=== PATIENT | female | born 1970 | race Caucasian/White ===

== ENCOUNTER 2016-11-26 12:27 | Emergency (ER) | payer OTHER ==
[~2016-11-26] VITALS: Ht 165.1 cm; Wt 57.4 kg
[~2016-11-26 12:27] MED LIST: CLON0.5T3 PO; CLR10 PO; LXP10 PO; OMEP40CA PO; ONDA8TAB7 PO; RIZA10TA18 PO
[2016-11-26 12:39] VITALS: TEMP 37.1; Ht 165.1 cm; Wt 57.4 kg
[2016-11-26] MEDS ORDERED: KETOROLAC TROMETHAMINE 60 MG/2 ML VIAL IM STA (13:46)
[2016-11-26] MEDS ORDERED: PROMETHAZINE HCL INJ 25 MG/ML 1 ML VIAL IM STA (13:46)
[2016-11-26] MEDS ORDERED: HYDROmorphone INJ 2 MG/ML SYR/VIAL IM STA (13:46)
[2016-11-26 14:14] VITALS: BP 100/58; PULSE 96; O2SAT 98
--- NOTE | 2016-11-26 14:28 | EMERGENCY ROOM VISIT NOTE ---
History Report prepared by Meng: Nia Owusu Under the Supervision of: Dr. Shahram Walsh D.O. First contact with patient: 13:39 Chief Complaint: HEADACHE Stated Complaint: MIGRAINE X 3 DAYS History of Present Illness The patient is a 45 year old female who presents to the Emergency Room with complaints of persistent headache that started 3 days ago. This headache feels like her typical headaches. The patient states that she was able to relieve the headache with her at-home medications but she did not specify what exactly she took. Today, she did not have any medications to take so she came into the ED. She is also experiencing photophobia, cough, sinus congestion, chest congestion , sore throat, and nausea. The patient adds that she is following with her PCP for recent neurological problems as a result of pinched nerves in her neck. Source of History: patient Onset: 3 days ago Position: head Quality: other (headache) Timing: other (persistent) Associated Symptoms: + cough, + nausea, + sorethroat Note: photophobia, sinus congestion, chest congestion Review of Systems See HPI for pertinent positives & negatives. A total of 10 systems reviewed and were otherwise negative. Past Medical & Surgical Medical Problems: (1) Bipolar II disorder (2) Gastric ulcer (3) History of - tubal ligation (4) Irritable Bowel Syndrome (5) Migraine (6) Unspecified cervix surgery Family History Cancer Diabetes mellitus Heart disease Hypertension Social History Smoking Status: Current Every Day Smoker Alcohol Use: occasionally Drug Use: none Marital Status: Housing Status: lives alone Occupation Status: employed Current/Historical Medications Scheduled Escitalopram Oxalate (Escitalopram Oxalate), 10 MG PO HS Loratadine (Claritin), 10 MG PO DAILY Scheduled PRN Clonazepam (Klonopin), 0.5 MG PO TID PRN for Anxiety Omeprazole (Prilosec), 40 MG PO DAILY PRN for PRN Ondansetron Tab (Zofran), 8 MG PO UD PRN for Nausea Rizatriptan Benzoate (Maxalt), 10 MG PO UD PRN for Migraine Allergies Coded Allergies: Lamotrigine (Verified Allergy, Mild, RASH, 11/26/16) Erythromycin (Verified Allergy, Unknown, ., 11/26/16) Macrolides (Verified Allergy, Unknown, ALLERGY TO ERYTHROMYCIN, 11/26/16) Diphenhydramine (Unverified Adverse Reaction, Intermediate, restless legs , 11/26/16) Hydroxyzine (Unverified Adverse Reaction, Unknown, RESTLESS LEGS, 11/26/16) Physical Exam Vital Signs Date Time Temp Pulse Resp B/P Pulse Ox O2 Delivery O2 Flow Rate FiO2 11/26/16 14:14 96 18 100/58 98 11/26/16 12:39 37.1 99 18 93/54 99 Room Air Physical Exam CONSTITUTIONAL/VITAL SIGNS: Reviewed / noted above. GENERAL: Non-toxic in appearance. INTEGUMENTARY: Warm, dry, and [place]. HEAD: Normocephalic. EYES: without scleral icterus or trauma. ENT/OROPHARYNX: clear and moist. LYMPHADENOPATHY/NECK: Is supple without lymphadenopathy or meningismus. RESPIRATORY: Lungs clear and equal. CARDIOVASCULAR: Regular rate and rhythm. GI/ABDOMEN: Soft and nontender. No organomegaly or pulsatile mass. No rebound or guarding. Normal bowel sounds. EXTREMITIES: Warm and well perfused. BACK: No CVA tenderness. NEUROLOGICAL: Intact without focal deficits. PSYCHIATRIC: normal affect. MUSCULOSKELETAL: Normally developed with good muscle tone. Medical Decision & Procedures Medications Administered Medications (Trade) Dose Ordered Sig/Cesar Route Start Time Stop Time Status Last Admin Dose Admin Ketorolac Tromethamine (Toradol Inj) 60 mg NOW STAT IM 11/26/16 13:46 11/26/16 13:48 DC 11/26/16 14:07 60 MG Hydromorphone HCl (Dilaudid Inj) 2 mg NOW STAT IM 11/26/16 13:46 11/26/16 13:48 DC 11/26/16 14:08 2 MG Promethazine HCl (Phenergan Inj) 25 mg NOW STAT IM 11/26/16 13:46 11/26/16 13:48 DC 11/26/16 14:07 25 MG ED Course 1339: Previous medical records were reviewed. The patient was evaluated in room D1. A complete history and physical examination was performed. 1346: Ordered Phenergan 25 mg IM, Dilaudid 2 mg IM, Toradol 60 mg IM 1351: On reevaluation, the patient is doing well. I discussed the results and findings with the patient. She verbalized agreement of the treatment plan. She was discharged home. Medical Decision Differential includes migraine headache, meningitis, sinusitis, CO exposure, ICH , SAH, infection, tumor, headache, sinus thrombosis, arterial dissection, as well as others were entertained. This is a 45-year-old female who presents to the ED with a chief complaint of a headache. She reports a history of migraines. The patient also states that she has had some flulike illnesses recently. She states this is similar to previous headaches. She denies any neck stiffness. She denies any other symptoms. Her vital signs are normal. She is afebrile. Her exam was unremarkable. Patient was treated with Dilaudid 2 mg IM, Toradol 60 mg IM and Phenergan 25 mg IM. She was felt to be stable for discharge and outpatient follow-up. She requested a prescription for Klonopin but this was declined to the PCP or her chronic provider. Impression Primary Impression: Headache Scribe Attestation The scribe's documentation has been prepared under my direction and personally reviewed by me in its entirety. I confirm that the note above accurately reflects all work, treatment, procedures, and medical decision making performed by me. Departure Information Dispostion Home / Self-Care Referrals Natalia Pantoja D.O. (PCP) Forms HOME CARE DOCUMENTATION FORM, IMPORTANT VISIT INFORMATION Patient Instructions A Signature Page, My [facility] Additional Instructions Follow-up with your doctor for further care and evaluation in 1-2 days. Return to the emergency department for worsening or new symptoms or any concerns. You have been examined and treated today on an emergency basis only. This is not a substitute for, or an effort to provide, complete comprehensive medical care. It is impossible to recognize and treat all injuries or illnesses in a single emergency department visit. It is therefore important that you follow up closely with your doctor. Call as soon as possible for an appointment.
== END 2016-11-26 14:32 | disposition home or self-care (01) ==
LOC: C.EDB 12:28 → C.EDD 14:32
DX: R51 Headache (principal); R11.0 Nausea; J02.9 Acute pharyngitis, unspecified; F17.210 Nicotine dependence, cigarettes, uncomplicated; F31.81 Bipolar II disorder; Z79.899 Other long term (current) drug therapy

== ENCOUNTER 2017-06-25 10:14 | Emergency (ER) | payer OTHER ==
[~2017-06-25] VITALS: Ht 165.1 cm; Wt 53.0 kg
[2017-06-25 10:20] VITALS: TEMP 36.7; Ht 165.1 cm; Wt 53.0 kg
[2017-06-25] MEDS ORDERED: SODIUM CHLORIDE 0.9% 1000ML 1,000 ML IV ONE (10:30)
[2017-06-25] MEDS ORDERED: KETOROLAC TROMETHAMINE 30 MG/ML VIAL IV STA (10:30)
[2017-06-25] MEDS ORDERED: PROCHLORPERAZINE 5 MG/ML 2 ML VIAL IV STA (10:30)
--- NOTE | 2017-06-25 10:39 | EMERGENCY ROOM VISIT NOTE ---
History Report prepared by Meng: Elva Max Under the Supervision of: Dr. Butch Johnston M.D. First contact with patient: 10:24 Chief Complaint: HEADACHE Stated Complaint: HEADACHE X2 DAYS History of Present Illness The patient is a 46 year old female who presents to the Emergency Room with complaints of a constant headache for the past two days. Her headache is located more on the right side of her head. She states that it is affecting the vision in her right eye. Light exacerbates her pain. She also reports nausea and one episode of vomiting this morning. The patient has a history of migraine headaches and states that this feels like her typical migraine. She has tried her usual medications without any relief of her symptoms. The patient rates her pain as a 10/10 in severity. Source of History: patient Onset: 2 days ago Position: head Symptom Intensity: 10/10 Timing: constant Modifying Factors (Worsening): other (light) Associated Symptoms: + nausea, + vomiting Review of Systems All systems have been listed, reviewed, and are negative other than those previously mentioned. Please see Additional Medical History Sheet. Past Medical & Surgical Medical Problems: (1) Bipolar II disorder (2) Gastric ulcer (3) History of - tubal ligation (4) Irritable Bowel Syndrome (5) Lactose intolerance (6) Migraine (7) Periorbital cellulitis of right eye (8) Radiculopathy affecting upper extremity (9) Unspecified cervix surgery Family History Cancer Diabetes mellitus Heart disease Hypertension Social History Smoking Status: Current Every Day Smoker Smokeless Tobacco Use: No Alcohol Use: occasionally Drug Use: none Marital Status: Housing Status: lives with family Occupation Status: employed Current/Historical Medications Scheduled Escitalopram (Lexapro), 10 MG PO DAILY Scheduled PRN Clonazepam (Klonopin), 0.5 MG PO TID PRN for Anxiety Promethazine Hcl (Phenergan), 25 MG PO Q4H PRN for Nausea Rizatriptan Benzoate (Maxalt), 10 MG PO UD PRN for Migraine Miscellaneous Medications Lactase (Lactaid) Allergies Coded Allergies: Lamotrigine (Verified Allergy, Mild, RASH, 06/25/17) Erythromycin (Verified Allergy, Unknown, ., 06/25/17) Macrolides (Verified Allergy, Unknown, ALLERGY TO ERYTHROMYCIN, 06/25/17) Diphenhydramine (Unverified Adverse Reaction, Intermediate, restless legs , 06/25/17) Hydroxyzine (Unverified Adverse Reaction, Unknown, RESTLESS LEGS, 06/25/17) Physical Exam Vital Signs Date Time Temp Pulse Resp B/P (MAP) Pulse Ox O2 Delivery O2 Flow Rate FiO2 06/25/17 11:31 56 20 102/57 100 Room Air 06/25/17 10:52 63 06/25/17 10:49 100 Room Air 06/25/17 10:20 36.7 66 18 118/60 99 Room Air Physical Exam GENERAL: Patient awake, alert, oriented x 3. Patient appears to be in moderate distress. Patient follows commands. Patient does not appear toxic. Patient is adequately hydrated and well-nourished. SKIN: No erythema, pallor, cyanosis or rash HEENT: Normal head, pupils equal, reactive to light and accommodation. Positive photophobia. Ears normal. Oral cavity and posterior pharynx appear normal. Neck: Without adenopathy, no neck vein distention. LUNGS: Clear to auscultation. No wheezes, no rales, no rhonchi. HEART: No murmurs. No gallops. No rubs ABDOMEN: Soft, nontender. EXTREMITIES: No signs of trauma. No pedal or pretibial edema. No calf or thigh tenderness. NEUROLOGIC: Cranial nerves II-XII within normal limits. No gross motor sensory function deficits. Medical Decision & Procedures Medications Administered Medications (Trade) Dose Ordered Sig/Cesar Route Start Time Stop Time Status Last Admin Dose Admin Ketorolac Tromethamine (Toradol Inj) 30 mg NOW STAT IV 06/25/17 10:30 06/25/17 10:34 DC 06/25/17 10:42 30 MG Prochlorperazine Edisylate (Compazine Inj) 10 mg NOW STAT IV 06/25/17 10:30 06/25/17 10:34 DC 06/25/17 10:42 10 MG Sodium Chloride 1,000 ml @ 999 mls/hr Q1H1M ONCE IV 06/25/17 10:30 06/25/17 11:30 DC 06/25/17 10:42 999 MLS/HR ED Course 1024: Past medical records reviewed. The patient was evaluated in room B12B. A complete history and physical examination was performed. 1030: NSS 1000 ml @ 999 mls/hr IV, Compazine 10 mg IV, Toradol 30 mg IV 1125: I reassessed the patient at this time. She is feeling better and resting comfortably. I discussed the results and treatment plan with the patient. I answered all pertaining questions that she had. She expressed understanding and verbalized agreement. The patient will be discharged home. Medical Decision Differential diagnoses includes migraine headache, tension headache, cluster headache, meningitis, encephalitis. The patient received the above medications with good relief. The patient would like to go home. The patient has no evidence of meningitis encephalitis or other infectious processes. The patient's findings are most consistent with a migraine headache. Medication Reconcilliation Current Medication List: was personally reviewed by me Blood Pressure Screening Patient's blood pressure: Normal blood pressure Impression Primary Impression: Migraine headache Scribe Attestation The scribe's documentation has been prepared under my direction and personally reviewed by me in its entirety. I confirm that the note above accurately reflects all work, treatment, procedures, and medical decision making performed by me. Departure Information Dispostion Home / Self-Care Referrals Ej Chong III, M.D. (PCP) Forms HOME CARE DOCUMENTATION FORM, IMPORTANT VISIT INFORMATION Patient Instructions My [facility] Additional Instructions REST Drink extra fluids. Follow-up with your family physician. Problem Qualifiers Primary Impression: Migraine headache Migraine type: unspecified Status migrainosus presence: without status migrainosus Intractability: not intractable Qualified Codes: G43.909 - Migraine, unspecified, not intractable, without status migrainosus
[2017-06-25 10:49] VITALS: O2SAT 100
[2017-06-25] MEDS ORDERED: LACT3000 (10:59)
[2017-06-25] MEDS ORDERED: ESCI10TA17 PO (10:59)
[2017-06-25] MEDS ORDERED: PROM25TA9 PO (10:59)
[2017-06-25 11:31] VITALS: BP 102/57; PULSE 56; O2SAT 100
== END 2017-06-25 11:59 | disposition home or self-care (01) ==
LOC: C.EDB 10:18
DX: G43.909 Migraine, unspecified, not intractable, without status migrainosus (principal); F31.81 Bipolar II disorder; F17.210 Nicotine dependence, cigarettes, uncomplicated; Z79.899 Other long term (current) drug therapy; Z83.3 Family history of diabetes mellitus; Z82.49 Family history of ischemic heart disease and other diseases of the circulatory system; Z88.1 Allergy status to other antibiotic agents

== ENCOUNTER 2017-12-31 14:44 | Emergency (ER) | payer OTHER ==
[~2017-12-31] VITALS: Ht 165.1 cm; Wt 51.3 kg
[~2017-12-31 14:44] MED LIST changes: -CLR10 PO; +ESCI10TA17 PO; +LACT3000 PO; -LXP10 PO; -OMEP40CA PO; -ONDA8TAB7 PO; +PROM25TA9 PO
[2017-12-31 14:46] VITALS: TEMP 36.8; Ht 165.1 cm; Wt 51.3 kg
--- NOTE | 2017-12-31 15:32 | DIAGNOSTIC IMAGING REPORT ---
CHEST ONE VIEW PORTABLE CLINICAL HISTORY: 47 years-old Female presenting with L sided chest pain. TECHNIQUE: Portable upright AP view of the chest was obtained. COMPARISON: 10/20/2011. FINDINGS: Cardiomediastinal silhouette normal. Lungs and pleural spaces clear. Osseous structures normal. Upper abdomen normal. IMPRESSION: 1. No acute cardiopulmonary disease. Electronically signed by: Santos Reyes M.D. 12/31/2017 3:31 PM Dictated Date/Time: 12/31/2017 3:30 PM
[2017-12-31 15:37] LABS: BASO % 0.2 %; BASO ABS # 0.01 K/uL (0-0.2); EOS % 1.1 %; EOS ABS # 0.05 K/uL (0-0.5); HEMATOCRIT 36.2 % (37-47); HEMOGLOBIN 12.6 g/dL (12.0-16.0); IG# 0.01 K/uL (0.00-0.02); LYMPH % 35.5 %; LYMPH ABS # 1.66 K/uL (1.2-3.4); MEAN CELL VOLUME 92.1 fL (80-100); MEAN CORPUSCULAR HEMOGLOBIN 32.1 pg (25-34); MEAN CORPUSCULAR HGB CONC 34.8 g/dl (32-36); MEAN PLATELET VOLUME 9.7 fL (7.4-10.4); MONO % 8.8 %; MONO ABS # 0.41 K/uL (0.11-0.59); NEUT % 54.2 %; NEUT ABS # 2.53 K/uL (1.4-6.5); PLATELET COUNT 211 K/uL (130-400); RED CELL DISTRIBUTION WIDTH CV 13.3 % (11.5-14.5); WHITE BLOOD COUNT 4.67 K/uL (4.8-10.8)
[2017-12-31] MEDS ORDERED: VENL150C56 PO (15:42)
[2017-12-31 15:47] LABS: PTT PATIENT 25.5 SECONDS (21.0-31.0)
--- NOTE | 2017-12-31 15:50 | EMERGENCY ROOM VISIT NOTE ---
History First contact with patient: 15:16 Chief Complaint: CHEST PAIN Stated Complaint: CHEST PAIN GOING TO BACK UPPER LEFT Nursing Triage Summary: Pt presents with left sided chest pain through to back, intermittent since Sun. Denies sob. +Lightheaded. Denies cardiac hx. Denies anything that makes pain better/worse. History of Present Illness The patient is a 47 year old female who presents to the Emergency Room via private vehicle with complaints of "chest pain going to back upper left". The patient states that this past Saturday while sitting on the couch she developed left-sided chest pain anteriorly that radiates just medial to her scapula. She states that when she moves her arm the pain is worse in the back. She is not able to reproduce the chest pain by pressing in the front but notes that when she does press the pain is slightly alleviated. She rates the current pain as minimal, but notes it has been constant since Saturday. She has a strong family history of heart ailments, but has not personally. She denies any history of clots. She denies any hormone use, leg swelling, recent long bone fracture, or alleviating or aggravating factors. She does smoke. She notes that when she exerts herself she does feel short of breath. Review of Systems A complete 10-point Review of Systems was discussed with the patient, with pertinent positives and negatives listed in the History of Present Illness. All remaining Review of Systems questions can be considered negative unless otherwise specified. Past Medical/Surgical History Medical Problems: (1) Bipolar II disorder (2) Gastric ulcer (3) History of - tubal ligation (4) Irritable Bowel Syndrome (5) Lactose intolerance (6) Migraine (7) Periorbital cellulitis of right eye (8) Radiculopathy affecting upper extremity (9) Unspecified cervix surgery Family History Cancer Diabetes mellitus Heart disease Hypertension Social History Smoking Status: Current Every Day Smoker Alcohol Use: occasionally Drug Use: none Marital Status: Housing Status: lives with family Occupation Status: employed Current/Historical Medications Scheduled Lactase (Lactaid), 1 TAB PO prn Loratadine (Claritin), 10 MG PO DAILY Omeprazole (Prilosec), 40 MG PO DAILY Ondansetron Hcl (Zofran), 8 MG PO Q8 Venlafaxine Hcl (Venlafaxine Extended Rel), 37.5 MG PO DAILY Scheduled PRN Clonazepam (Klonopin), 0.5 MG PO TID PRN for Anxiety Meloxicam (Mobic), 7.5 MG PO BID PRN for Pain Promethazine Hcl (Phenergan), 25 MG PO Q4H PRN for Nausea Rizatriptan Benzoate (Maxalt), 10 MG PO UD PRN for Migraine Physical Exam Vital Signs Date Time Temp Pulse Resp B/P (MAP) Pulse Ox O2 Delivery O2 Flow Rate FiO2 12/31/17 16:45 57 16 110/61 95 Room Air 12/31/17 16:17 100 Room Air 12/31/17 14:46 36.8 77 18 120/66 100 Room Air Physical Exam VITAL SIGNS - Vital signs and nursing notes were reviewed. Stable. GENERAL - 47-year-old female appearing her stated age who is in no acute distress. Communicates well with provider and answers questions appropriately. SKIN - Without rashes. HEAD - NC/AT. EYES -Sclera anicteric. EARS - No deformities of external structures noted on gross examination bilaterally. NOSE - Midline and without cyanosis. No epistaxis or purulent drainage noted. MOUTH/OROPHARYNX - Without perioral cyanosis. NECK - Neck with FROM. LUNGS - Chest wall symmetric without accessory muscle use, intercostals retractions, or central cyanosis. Normal vesicular breath sounds CTA B/L. No wheezes, rales, or rhonchi appreciated. CARDIAC - RRR with S1/S2. No murmur, rubs, or gallops appreciated. ABDOMEN - Abdominal contour normal without pulsations or visible masses. BS normoactive all four quadrants. No tenderness, palpable masses, hepatosplenomegaly, or ascites noted. EXTREMITIES - No clubbing or peripheral cyanosis. No pretibial edema present. NEUROLOGIC - Cranial nerves II through XII grossly intact. Sensory intact to light touch throughout. PSYCH - A&O, and cooperates fully with examiner. Pt is very pleasant and interacts well with examiner. Medical Decision & Procedures ER Provider Diagnostic Interpretation: CHEST ONE VIEW PORTABLE CLINICAL HISTORY: 47 years-old Female presenting with L sided chest pain. TECHNIQUE: Portable upright AP view of the chest was obtained. COMPARISON: 10/20/2011. FINDINGS: Cardiomediastinal silhouette normal. Lungs and pleural spaces clear. Osseous structures normal. Upper abdomen normal. IMPRESSION: 1. No acute cardiopulmonary disease. Electronically signed by: Santos Reyes M.D. 12/31/2017 3:31 PM Dictated Date/Time: 12/31/2017 3:30 PM Laboratory Results 12/31/17 15:25 Red Blood Count 3.93, Mean Corpuscular Volume 92.1, Mean Corpuscular Hemoglobin 32.1, Mean Corpuscular Hemoglobin Concent 34.8, Mean Platelet Volume 9.7, Neutrophils (%) (Auto) 54.2, Lymphocytes (%) (Auto) 35.5, Monocytes (%) (Auto) 8.8, Eosinophils (%) (Auto) 1.1, Basophils (%) (Auto) 0.2, Neutrophils # (Auto) 2.53, Lymphocytes # (Auto) 1.66, Monocytes # (Auto) 0.41, Eosinophils # (Auto) 0.05, Basophils # (Auto) 0.01 12/31/17 15:25 Test 12/31/17 15:25 12/31/17 16:00 White Blood Count 4.67 K/uL (4.8-10.8) Red Blood Count 3.93 M/uL (4.2-5.4) Hemoglobin 12.6 g/dL (12.0-16.0) Hematocrit 36.2 % (37-47) Mean Corpuscular Volume 92.1 fL (80-100) Mean Corpuscular Hemoglobin 32.1 pg (25-34) Mean Corpuscular Hemoglobin Concent 34.8 g/dl (32-36) Platelet Count 211 K/uL (130-400) Mean Platelet Volume 9.7 fL (7.4-10.4) Neutrophils (%) (Auto) 54.2 % Lymphocytes (%) (Auto) 35.5 % Monocytes (%) (Auto) 8.8 % Eosinophils (%) (Auto) 1.1 % Basophils (%) (Auto) 0.2 % Neutrophils # (Auto) 2.53 K/uL (1.4-6.5) Lymphocytes # (Auto) 1.66 K/uL (1.2-3.4) Monocytes # (Auto) 0.41 K/uL (0.11-0.59) Eosinophils # (Auto) 0.05 K/uL (0-0.5) Basophils # (Auto) 0.01 K/uL (0-0.2) RDW Standard Deviation 45.0 fL (36.4-46.3) RDW Coefficient of Variation 13.3 % (11.5-14.5) Immature Granulocyte % (Auto) 0.2 % Immature Granulocyte # (Auto) 0.01 K/uL (0.00-0.02) Prothrombin Time 10.7 SECONDS (9.0-12.0) Prothromb Time International Ratio 1.0 (0.9-1.1) Activated Partial Thromboplast Time 25.5 SECONDS (21.0-31.0) Partial Thromboplastin Ratio 1.0 D-Dimer < 190 ug/L FEU (0-500) Anion Gap 4.0 mmol/L (3-11) Est Creatinine Clear Calc Drug Dose 59.3 ml/min Estimated GFR () 82.2 Estimated GFR (Non- 70.9 BUN/Creatinine Ratio 12.3 (10-20) Calcium Level 8.3 mg/dl (8.5-10.1) Total Bilirubin 0.4 mg/dl (0.2-1) Aspartate Amino Transf (AST/SGOT) 20 U/L (15-37) Alanine Aminotransferase (ALT/SGPT) 25 U/L (12-78) Alkaline Phosphatase 41 U/L (45-117) Total Creatine Kinase 108 U/L (26-192) Creatine Kinase MB 1.2 ng/ml (0.5-3.6) Creatine Kinase MB Ratio 1.1 (0-3.0) Troponin I < 0.015 ng/ml (0-0.045) Total Protein 8.0 gm/dl (6.4-8.2) Albumin 4.0 gm/dl (3.4-5.0) Globulin 4.0 gm/dl (2.5-4.0) Albumin/Globulin Ratio 1.0 (0.9-2) Lipase 156 U/L (73-393) Thyroid Stimulating Hormone (TSH) 2.400 uIu/ml (0.300-4.500) Lyme Disease IgG Antibody NEG (NEG) Lyme Disease IgM Antibody NEG (NEG) Urine Color YELLOW Urine Appearance CLEAR (CLEAR) Urine pH 5.5 (4.5-7.5) Urine Specific [place] 1.010 (1.000-1.030) Urine Protein NEG (NEG) Urine Glucose (UA) NEG (NEG) Urine Ketones NEG (NEG) Urine Occult Blood NEG (NEG) Urine Nitrite NEG (NEG) Urine Bilirubin NEG (NEG) Urine Urobilinogen NEG (NEG) Urine Leukocyte Esterase NEG (NEG) Urine Test NEG (NEG) Medical Decision Patient was seen and evaluated as above. She presents to us today with chest pain. It has been 3 days constant, and there are no exacerbating or alleviating factors. It is not worse with exertion. She does smoke, but no other personal risk factors identified. IV access was initiated, and the above workup was performed. Bedside EKG reveals normal sinus rhythm per my interpretation, rate of 70 bpm. No evidence of MN or pulmonary embolism upon examination. CBC reveals white blood cell count so low at 4.67, red blood cell count low at 3.93. Coagulation studies normal. D-dimer negative. Chemistry panel reveals no evidence of kidney or liver failure. Calcium low at 8.3. Lipase normal. TSH normal. Troponin negative. Urine negative. Lyme screen negative. Case was discussed with the attending physician. It is reassuring that the patient is able to alleviate her left anterior chest pain with gentle massage. There is no exertional symptoms to her chest pain today. Given the patient's negative troponin, with the onset greater than 6 hours from this time heart etiology is less likely. D-dimer negative. I suspect this is likely musculoskeletal in nature. She is however to return if there are any exertional symptoms with this or changes. She is to follow closely with her family doctor. She was educated upon management, educated upon worrisome symptoms in which to return, had questions answered prior to discharge, and was discharged home in good condition. In evaluation treatment this patient the following differential diagnoses were entertained: MN, PE, costochondritis, pericarditis, musculoskeletal strain, among others. Impression Primary Impression: Chest wall pain Departure Information Dispostion Home / Self-Care Condition GOOD Referrals Ej Chong III, M.D. (PCP) Patient Instructions My [facility] Additional Instructions You have been treated in the Emergency Department your chest Pain. Laboratory results and imaging studies have ruled out any emergent causes for your chest pain which would warrant admission or surgery. For pain control, you can use the following obfd-get-netudit medicines if no reaction and able to take: - Regular strength (325mg/tab) Tylenol (acetaminophen) 2 tabs every 4-6 hours as needed. Do not exceed 12 tablets in a 24 hour period. Avoid taking more than 3 grams (3000 mg) of Tylenol per day. This includes any other sources of acetaminophen you may take on a regular basis. - Regular strength (200 mg/tab) Advil (ibuprofen) 1-2 tabs every 4-6 hours as needed. Do not exceed a dose of 3200 mg per day. Drink plenty of water and stay well hydrated. As with any trip to the Emergency Department, you should follow-up with your Primary Care Provider from today's visit. Please return with any new/concerning symptoms or if you develop chest pain with exertion.
[2017-12-31] MEDS ORDERED: CLR10 PO (15:51)
[2017-12-31] MEDS ORDERED: OMEP40CA41 PO (15:51)
[2017-12-31] MEDS ORDERED: ONDA8TAB6 PO (15:51)
[2017-12-31] MEDS ORDERED: MELO7.5T5 PO (15:51)
[2017-12-31] MEDS ORDERED: VENL37.593 PO (15:51)
[2017-12-31 15:58] LABS: ALT/SGPT 25 U/L (12-78); AST/SGOT 20 U/L (15-37); BLOOD UREA NITROGEN 12 mg/dl (7-18); CALCIUM 8.3 mg/dl (8.5-10.1); CARBON DIOXIDE 26 mmol/L (21-32); CREATININE 0.96 mg/dl (0.60-1.20); GLUCOSE 70 mg/dl (70-99); LIPASE 156 U/L (73-393); POTASSIUM 3.8 mmol/L (3.5-5.1); SODIUM 136 mmol/L (136-145)
[2017-12-31 16:09] LABS: ALKALINE PHOSPHATASE 41 U/L (45-117); CKMB 1.2 ng/ml (0.5-3.6)
[2017-12-31 16:17] VITALS: O2SAT 100
[2017-12-31 16:45] VITALS: BP 110/61; PULSE 57; O2SAT 95
== END 2017-12-31 17:02 | disposition home or self-care (01) ==
LOC: C.EDB 14:45 → C.EDC 17:02
DX: R07.89 Other chest pain (principal); M79.622 Pain in left upper arm; D72.819 Decreased white blood cell count, unspecified; E83.51 Hypocalcemia; F31.81 Bipolar II disorder; F17.200 Nicotine dependence, unspecified, uncomplicated; Z82.49 Family history of ischemic heart disease and other diseases of the circulatory system; Z83.3 Family history of diabetes mellitus

== ENCOUNTER 2021-08-02 09:37 | Observation (INO) ==
[2021-08-02] MEDS ORDERED: MoRPHine SULFATE 4 MG/ML 1 ML CARP\\VIAL IV STA (10:56)
[2021-08-02] MEDS ORDERED: ONDANSETRON INJ 2 MG/ML 2 ML VIAL IV STA (10:56)
[2021-08-02] MEDS ORDERED: SODIUM CHLORIDE 0.9% 1000ML 1,000 ML IV STA (10:56)
[2021-08-02 11:12] LABS: Basophils # (auto) 0.01 K/uL (0-0.2); Basophils % (auto) 0.2 %; Hematocrit (blood only) 35.6 % (37-47); Hemoglobin 12.4 g/dL (12.0-16.0); Lymphocytes # (auto) 1.12 K/uL (1.2-3.4); Mean Corpuscular Hemoglobin 31.9 pg (25-34); Mean Corpuscular Hgb Conc 34.8 g/dL (32-36); Mean Corpuscular Volume 91.5 fL (80-100); Monocytes # (auto) 0.27 K/uL (0.11-0.59); Monocytes % (auto) 5.3 %; Neutrophils # (auto) 3.68 K/uL (1.4-6.5); Neutrophils % (auto) 72.5 %; Platelet Count 274 K/uL (130-400); Red Blood Count 3.89 M/uL (4.2-5.4); White Blood Count 5.08 K/uL (4.8-10.8)
[2021-08-02 11:23] LABS: Pregnancy Test, Serum Negative (Negative)
[2021-08-02 11:28] LABS: Albumin Level 3.7 gm/dl (3.4-5.0); BUN Creatinine Ratio 9.2 (10-20); Calcium 8.4 mg/dl (8.5-10.1); Creatinine Clr Calc Pharmacy 58.4 ml/min; Est GFR (African American) 73.9 ml/min; Est GFR (Non-African American) 63.8 ml/min; Potassium 3.4 mmol/L (3.5-5.1)
[2021-08-02 11:31] LABS: Albumin Globulin Ratio 1.1 (0.9-2); Bilirubin,Total 0.7 mg/dl (0.2-1); Globulin 3.3 gm/dl (2.5-4.0)
--- NOTE | 2021-08-02 11:37 | XRay Report ---
SINGLE VIEW CHEST CLINICAL HISTORY: Atypical chest pain. FINDINGS: An AP, portable, upright chest radiograph is compared to study dated 10/13/2018. The cardio mediastinal silhouette is unremarkable. The lungs and pleural spaces are clear. No pneumothorax is se en. The bony thorax is grossly intact. IMPRESSION: No active disease in the chest. ACT 112: Negative or not required by law. Electronically signed by: Jeffry Farias M.D. 08/02/2021 11:35 AM
[2021-08-02 11:42] LABS: Appearance Urine Clear (Clear); Bilirubin Urine Negative (Negative); Blood Urine Negative (Negative); Color Urine Yellow; Glucose Urine UA Negative (Negative); Ketones Urine 2+ (Negative); Leukocyte Esterase Urine Negative (Negative); Nitrite Urine Negative (Negative); Protein Urine Negative (Negative); Specific Gravity Urine 1.012 (1.000-1.030); Urobilinogen Urine Negative (Negative)
--- NOTE | 2021-08-02 11:58 | XRay Report ---
KUB HISTORY: Generalized abdominal pain COMPARISON: Chest and abdominal series 10/20/2011. FINDINGS: The bowel gas pattern is unremarkable. There are no dilated loops of small bowel to suggest an obstruction. No renal calculi. No ureteral calculi. No pneumoperitoneum or pneumatosis. Bilatera l tubal ligation clips are noted. IMPRESSION: Unremarkable KUB. ACT 112: Negative or not required by law. Electronically signed by: Praveen Browning M.D. 08/02/2021 11:57 AM
--- NOTE | 2021-08-02 12:15 | Emergency Department Note ---
Impression & Plan Acute cholecystitis, Cholelithiasis, Diarrhea ED Provider Note NAME: YASMANY BARRAGAN AGE: 50 SEX: F : 1970 ARRIVES VIA: Walk-In INFORMANT: Patient, ED PROVIDER(S): Olman Smith DO CHIEF COMPLAINT: Abdominal pain HPI: The patient is a 50-year-old female who presented to the emergency department for an evaluation of abdominal pain. The patient states that she has been having symptoms for approximate 1 month. She was seen by her primary care physician and was diagnosed with gallstones but no other follow-up was offered. The patient states that she went to [facility] recently was also told she may have problems with gallstones but no surgical evaluation was done. The patient states she has had loose bowel movements. She also complains of nausea but no vomiting. She denies having any chest pain. She denies having any shortness of breath or cough. She notices no lower extremity swelling. She denies having any headache. She is had no fever. The patient states symptoms started to worsen and she has been unable to eat or drink without having diarrhea so she presented to the emergency department today for further evaluation. ROS: See above HPI for pertinent positives & negatives. A total of 10 systems reviewed and were otherwise negative. PAST MEDICAL HISTORY: See Below PAST SURGICAL HISTORY: See Below FAMILY HISTORY: See Below SOCIAL HISTORY: See Below HOME MEDICATIONS: See Below ALLERGIES: See Below VITALS: See Below PHYSICAL EXAMINATION: GENERAL: Patient is awake alert in no acute distress patient is resting comfortably and showing no signs of anxiety EYES: The conjunctivae are clear. The pupils are round and reactive. EARS, NOSE, MOUTH AND THROAT: The nose is without any evidence of any deformity. Mucous membranes are moist. Tongue is midline. NECK: The neck is nontender and supple. RESPIRATORY: Normal respiratory effort is noted there is no evidence of wheezing rhonchi or rales CARDIOVASCULAR: Regular rate and rhythm noted there no murmurs rubs or gallops normal S1 normal S2. GASTROINTESTINAL: The abdomen is soft. There is diffuse tenderness to palpation. There is right upper quadrant tenderness to palpation but no guarding or rigidity. MUSCULOSKELETAL/EXTREMITIES: There is no evidence of gross deformity full range of motion is noted in the hips and shoulders. SKIN: There is no obvious evidence of any rash. There are no petechiae, pallor or cyanosis noted. NEUROLOGIC: Patient is awake alert and oriented x3 strength is symmetric patellar reflexes are 2+ bilaterally MEDICAL DECISION MAKING: The patient is a 50-year-old female who presented to the emergency department for an evaluation of abdominal pain as well as diarrhea. The patient was seen in an outside facility recently. I did review the patient's previous electronic medical records from that visit and she does appear to have signs of c holecystitis on that work-up. Her work-up was repeated in the emergency department today and still appears to be consistent with acute cholecystitis although she does not have signs of biliary obstruction on laboratory findings and her white blood cell count was normal. She was treated with medication in the emergency department for pain. She was also treated with IV antibiotics. I discussed the patient's laboratory and radiographic studies with her. Because of her findings I also discussed this case with the on-call general surgeon. She was evaluated in the emergency department by the general surgeon was felt to be a good candidate for surgical management. The patient was agreeable to this plan. Triage Nursing notes reviewed. Prior medical records reviewed Vital Signs: reviewed and remarkable for bradycardia. Differential diagnosis: Etiologies such as appendicitis, diverticulitis, obstruction, inflammatory bowel disease, renal colic, PUD, biliary pathology, pancreatitis, mesenteric ischemia, aortic pathology, infections, genitourinary, UTI, perforated viscus, as well as others were entertained. ER treatment provided: See below Diagnostics interpreted by me: ECG: EKG was obtained in the emergency department. My interpretation is sinus bradycardia at 46 bpm. There was no ectopy. There was no acute ST segment abnormalities noted. This was compared to a tracing from October [id number]. No significant changes were noted. Cardiac Monitoring: An order was placed for continuous cardiac monitoring. The monitor shows a rate of 40 bpm with sinus bradycardia rhythm. Laboratory studies: As stated above and show below. Imaging studies: See below Consultation(s): I discussed this case with Dr. Bales who is on-call for general surgery. He will evaluate the patient in the emergency department for further management and disposition. Past Med/Surg History Medical History Depressed mood History of Sjogren's disease Lactose intolerance Lymphadenitis Surgical History No significant past surgical history Social History Smoking Status: Current every day smoker Preferred Language: Thai marital status: Single current occupational status: employed Feels Safe at Home: Yes Allergies Allergies Allergy/AdvReac Type Severity Reaction Status Date / Time lamotrigine Allergy Mild RASH Verified 08/02/21 14:59 erythromycin base Allergy Unknown Unknown Verified 08/02/21 14:59 Macrolide Antibiotics Allergy Unknown ALLERGY TO Verified 08/02/21 14:59 ERYTHROMYCIN diphenhydramine AdvReac Intermediate restless Verified 08/02/21 14:59 legs lactose AdvReac Intermediate SJOGRENS Verified 08/02/21 15:04 SYNDROME hydroxyzine AdvReac Unknown RESTLESS Verified 08/02/21 14:59 LEGS Home Meds Home Medications Medication Instructions Recorded Confirmed clonazepam 0.5 mg tablet (Klonopin) 0.5 mg PO BID 10/13/18 08/02/21 loratadine 10 mg tablet (Claritin) 10 mg PO DAILY 10/13/18 08/02/21 mirtazapine 30 mg tablet (Remeron) 30 mg PO HS 10/13/18 08/02/21 rizatriptan 10 mg disintegrating 10 mg PO UD PRN 10/13/18 08/02/21 tablet (Maxalt-CERTIFIED NEURODIAGNOSTIC TECHNOLOGIST) Medical Marijuana 1 dose INHALATION DIRECTED PRN 08/02/21 08/02/21 escitalopram oxalate 10 mg tablet 10 mg PO HS 08/02/21 08/02/21 ondansetron 4 mg disintegrating 4 mg PO DIRECTED PRN 08/02/21 08/02/21 tablet Results & Data (ED) Vital Signs Vital Signs - 24 hr 08/02/21 09:48 08/02/21 11:16 08/02/21 11:30 Temperature 36.8 C Temperature Source Temporal Artery Scan Pulse Rate 53 L 47 L 51 L Pulse Rate from SpO2 Sensor 48 L 50 L Respiratory Rate 18 20 Blood Pressure 127/57 L 125/70 117/67 Blood Pressure Mean 80 88 83 Pulse Oximetry 96 100 100 Oxygen Delivery Method Room Air Room Air Room Air Sepsis Recent Fever Within 48 Hours No Sepsis New/Unexplained Change in Mental Status No Sepsis Action Taken by Nursing No Action Required 08/02/21 12:00 08/02/21 12:30 08/02/21 13:00 Temperature Temperature Source Pulse Rate 46 L 41 L 43 L Pulse Rate from SpO2 Sensor 47 L 42 L 43 L Respiratory Rate 16 15 17 Blood Pressure 121/63 132/66 117/60 Blood Pressure Mean 82 88 79 Pulse Oximetry 100 96 97 Oxygen Delivery Method Sepsis Recent Fever Within 48 Hours Sepsis New/Unexplained Change in Mental Status Sepsis Action Taken by Nursing 08/02/21 13:38 08/02/21 14:00 08/02/21 16:30 Temperature Temperature Source Pulse Rate 40 L Pulse Rate from SpO2 Sensor 44 L 51 L Respiratory Rate 20 Blood Pressure 119/64 112/64 124/70 Blood Pressure Mean 82 80 88 Pulse Oximetry 100 100 100 Oxygen Delivery Method Room Air Sepsis Recent Fever Within 48 Hours Sepsis New/Unexplained Change in Mental Status Sepsis Action Taken by Jail Medications Current Medication List: was personally reviewed by me Laboratory Data Attestation: I reviewed the patient's lab results. Result diagrams: 08/02/21 10:14 08/02/21 10:14 Lab Results 08/02/21 08/02/21 08/02/21 Range/Units 10:10 10:14 10:14 WBC 5.08 (4.8-10.8) K/uL RBC 3.89 L (4.2-5.4) M/uL Hgb 12.4 (12.0-16.0) g/dL Hct 35.6 L (37-47) % MCV 91.5 (80-100) fL MCH 31.9 (25-34) pg MCHC 34.8 (32-36) g/dL RDW Std Deviation 46.0 (36.4-46.3) fL RDW Coeff of Angel 14.0 (11.5-14.5) % Plt Count 274 (130-400) K/uL MPV 10.0 (7.4-10.4) fL Immature Gran % (Auto) 0.0 % Neut % (Auto) 72.5 % Lymph % (Auto) 22.0 % [place] % (Auto) 5.3 % Eos % (Auto) 0.0 % Baso % (Auto) 0.2 % Neut # (Auto) 3.68 (1.4-6.5) K/uL Lymph # (Auto) 1.12 L (1.2-3.4) K/uL [place] # (Auto) 0.27 (0.11-0.59) K/uL Eos # (Auto) 0.00 (0-0.5) K/uL Baso # (Auto) 0.01 (0-0.2) K/uL Immature Gran # (Auto) 0.00 (0.00-0.02) K/uL Sodium 141 (136-145) mmol/L Potassium 3.4 L (3.5-5.1) mmol/L Chloride 112 H (98-107) mmol/L Carbon Dioxide 21 (21-32) mmol/L Anion Gap 8.0 (3-11) BUN 10 (7-18) mg/dl Creatinine 1.03 (0.6-1.2) mg/dl Est Cr Clr Drug Dosing 58.4 ml/min Est GFR ( Amer) 73.9 ml/min Est GFR (Non-Af Amer) 63.8 ml/min BUN/Creatinine Ratio 9.2 L (10-20) Glucose 93 (70-99) mg/dl Calcium 8.4 L (8.5-10.1) mg/dl Total Bilirubin 0.7 (0.2-1) mg/dl AST 21 (15-37) U/L ALT 20 (12-78) U/L Alkaline Phosphatase 38 L (45-117) U/L Troponin I (0-0.045) ng/ml Total Protein 7.0 (6.4-8.2) gm/dl Albumin 3.7 (3.4-5.0) gm/dl Globulin 3.3 (2.5-4.0) gm/dl Albumin/Globulin Ratio 1.1 (0.9-2) Lipase 76 (73-393) U/L HCG, Qual (Negative) Urine Color Yellow Urine Appearance Clear (Clear) Urine pH 6.0 (4.5-7.5) Ur Specific [place] 1.012 (1.000-1.030) Urine Protein Negative (Negative) Urine Glucose (UA) Negative (Negative) Urine Ketones 2+ H (Negative) Urine Blood Negative (Negative) Urine Nitrite Negative (Negative) Urine Bilirubin Negative (Negative) Urine Urobilinogen Negative (Negative) Ur Leukocyte Esterase Negative (Negative) COVID-19 Eval Order 08/02/21 08/02/21 08/02/21 Range/Units 10:14 12:02 15:53 WBC (4.8-10.8) K/uL RBC (4.2-5.4) M/uL Hgb (12.0-16.0) g/dL Hct (37-47) % MCV (80-100) fL MCH (25-34) pg MCHC (32-36) g/dL RDW Std Deviation (36.4-46.3) fL RDW Coeff of Angel (11.5-14.5) % Plt Count (130-400) K/uL MPV (7.4-10.4) fL Immature Gran % (Auto) % Neut % (Auto) % Lymph % (Auto) % [place] % (Auto) % Eos % (Auto) % Baso % (Auto) % Neut # (Auto) (1.4-6.5) K/uL Lymph # (Auto) (1.2-3.4) K/uL [place] # (Auto) (0.11-0.59) K/uL Eos # (Auto) (0-0.5) K/uL Baso # (Auto) (0-0.2) K/uL Immature Gran # (Auto) (0.00-0.02) K/uL Sodium (136-145) mmol/L Potassium (3.5-5.1) mmol/L Chloride (98-107) mmol/L Carbon Dioxide (21-32) mmol/L Anion Gap (3-11) BUN (7-18) mg/dl Creatinine (0.6-1.2) mg/dl Est Cr Clr Drug Dosing ml/min Est GFR ( Amer) ml/min Est GFR (Non-Af Amer) ml/min BUN/Creatinine Ratio (10-20) Glucose (70-99) mg/dl Calcium (8.5-10.1) mg/dl Total Bilirubin (0.2-1) mg/dl AST (15-37) U/L ALT (12-78) U/L Alkaline Phosphatase (45-117) U/L Troponin I < 0.015 (0-0.045) ng/ml Total Protein (6.4-8.2) gm/dl Albumin (3.4-5.0) gm/dl Globulin (2.5-4.0) gm/dl Albumin/Globulin Ratio (0.9-2) Lipase (73-393) U/L HCG, Qual Negative (Negative) Urine Color Urine Appearance (Clear) Urine pH (4.5-7.5) Ur Specific [place] (1.000-1.030) Urine Protein (Negative) Urine Glucose (UA) (Negative) Urine Ketones (Negative) Urine Blood (Negative) Urine Nitrite (Negative) Urine Bilirubin (Negative) Urine Urobilinogen (Negative) Ur Leukocyte Esterase (Negative) COVID-19 Eval Order Covid19 at [facility] Administered Medications Discontinued Medications Sodium Chloride (Nss 1000ml) 1,000 mls @ 999 mls/hr IV .Q1H1M STA Stop: 08/02/21 11:56 Last Infusion: 08/02/21 12:49 Dose: 0 mls/hr Documented by: [id number] Admin: 08/02/21 11:18 Dose: 999 mls/hr Documented by: [id number] Piperacillin Sod/Tazobactam Sod (Zosyn) 4.5 gm in 120 mls @ 240 mls/hr IV NOW ONE Stop: 08/02/21 16:13 Last Infusion: 08/02/21 16:30 Dose: 0 mls/hr Documented by: [id number] Admin: 08/02/21 15:56 Dose: 240 mls/hr Documented by: [id number] Morphine Sulfate (Morphine Sulfate 4 Mg/Ml 1 Ml Carp\Vial) 4 mg IV NOW STA Stop: 08/02/21 10:57 Last Admin: 08/02/21 11:21 Dose: 4 mg Documented by: [id number] Ondansetron HCl (Ondansetron Inj 2 Mg/Ml 2 Ml Vial) 4 mg IV NOW STA Stop: 08/02/21 10:57 Last Admin: 08/02/21 11:19 Dose: 4 mg Documented by: [id number] Imaging Data Radiologist's Impression: Chest X-Ray 08/02/21 10:56 SINGLE VIEW CHEST CLINICAL HISTORY: Atypical chest pain. FINDINGS: An AP, portable, upright chest radiograph is compared to study dated 10/13/2018. The cardiomediastinal silhouette is unremarkable. The lungs and pleural spaces are clear. No pneumothorax is seen. The bony thorax is grossly intact. IMPRESSION: No active disease in the chest. ACT 112: Negative or not required by law. Electronically signed by: Jeffry Farias M.D. 08/02/2021 11:35 AM KUB X-Ray 08/02/21 10:56 KUB HISTORY: Generalized abdominal pain COMPARISON: Chest and abdominal series 10/20/2011. FINDINGS: The bowel gas pattern is unremarkable. There are no dilated loops of small bowel to suggest an obstruction. No renal calculi. No ureteral calculi. No pneumoperitoneum or pneumatosis. Bilateral tubal ligation clips are noted. IMPRESSION: Unremarkable KUB. ACT 112: Negative or not required by law. Electronically signed by: Praveen Browning M.D. 08/02/2021 11:57 AM Gallbladder Ultrasound 08/02/21 12:08 US gallbladder CLINICAL HISTORY: Abdominal pain. COMPARISON STUDY: KUB August 02, 2021 and abdominal surgery October 20, 2011. FINDINGS: Liver is sonographically normal. There is no biliary ductal dilatation. The common bile duct measures 4 mm in caliber. There is mild gallbladder wall thickening. There are small gallstones within the gallbladder. Sonographic Chen sign was reported. There is trace pericholecystic fluid as well as trace perihepatic fluid. The pancreas is obscured. There is no right hydronephrosis. IMPRESSION: 1. Cholelithiasis, mild gallbladder wall thickening, trace pericholecystic fluid and sonographic Chen sign. Acute cholecystitis cannot be excluded. If ind icated, a hepatobiliary scan could be obtained. 2. No biliary ductal dilatation. 3. Obscured pancreas. ACT 112: Negative or not required by law. Electronically signed by: Cayden Montoya M.D. 08/02/2021 1:53 PM Discharge Plan Visit Data Chief Complaint: Diarrhea Stated Complaint: DIARRHEA, UNABLE TO KEEP ANYTHING DOWN ED Provider: Olman Smith Discharge Problem: Acute cholecystitis, Cholelithiasis, Diarrhea Patient Disposition: Being Evaluated by Surgeon Condition: Good Forms Stand Alone Forms: My [employer] Prescriptions Prescriptions: No Action clonazepam [Klonopin] 0.5 mg tablet 0.5 mg PO BID RF: 0 rizatriptan [Maxalt-CERTIFIED NEURODIAGNOSTIC TECHNOLOGIST] 10 mg tablet,disintegrating 10 mg PO UD PRN (Reason: Migraine Headache) RF: 0 mirtazapine [Remeron] 30 mg tablet 30 mg PO HS RF: 0 loratadine [Claritin] 10 mg Tablet 10 mg PO DAILY RF: 0 ondansetron 4 mg tablet,disintegrating 4 mg PO DIRECTED PRN (Reason: NAUSEA/VOMITING) RF: 0 escitalopram oxalate 10 mg tablet 10 mg PO HS RF: 0 Medical Marijuana 1 dose inhalation DIRECTED PRN (Reason: PAIN, ANXIETY) RF: 0 Referrals Referrals: Neeta Flores DO [Primary Care Provider] -
--- NOTE | 2021-08-02 13:54 | Ultrasound Report ---
US gallbladder CLINICAL HISTORY: Abdominal pain. COMPARISON STUDY: KUB August 02, 2021 and abdominal surgery October 20, 2011. FINDINGS: Liver is sonographically normal. There is no biliary ductal dilatation. The common bile joseph t measures 4 mm in caliber. There is mild gallbladder wall thickening. There are small gallstones wit hin the gallbladder. Sonographic Chen sign was reported. There is trace pericholecystic fluid as we ll as trace perihepatic fluid. The pancreas is obscured. There is no right hydronephrosis. IMPRESSION: 1. Cholelithiasis, mild gallbladder wall thickening, trace pericholecystic fluid and sonographic Murp hy sign. Acute cholecystitis cannot be excluded. If indicated, a hepatobiliary scan could be obtained . 2. No biliary ductal dilatation. 3. Obscured pancreas. ACT 112: Negative or not required by law. Electronically signed by: Cayden Montoya M.D. 08/02/2021 1:53 PM
[2021-08-02] MEDS ORDERED: PIPERACILLIN/TAZOBACTAM 4.5 GM/120 ML BAG IV ONE (15:44)
[2021-08-02] MEDS ORDERED: PIPERACILL/TAZOBAC CONSULT ACTIVE PRN ×2 (15:44→18:08)
--- NOTE | 2021-08-02 16:46 | Surgery Consultation ---
Date of Consultation August 02, 2021 Assessment & Plan (1) Acute cholecystitis: pt is 50 year-old female who presents to Er with abdominal pain, U/S study- acute cholecystitis, cholelithiasis, Plan, admit to hospital conservative treatment now, NPO, IV fluid, iv antibiotic,control pain, repeat labs in morning, I recommend to do laparoscopic cholecystectomy, possible open or cholangiogram tomorrow, D/W benefits, risks and alternatives of the surgery, the risks - infection, bleeding, injury other organs, may need ERCP, pt understood, she agrees with the plan, I answered all questions, NPO Present on Admission?: Yes (2) Cholelithiasis: see above History of Present Illness Reason for Consultation: acute cholecystitis Requesting Physician: Olman Singer History of Present Illness CHIEF COMPLAINT: Abdominal pain HPI: The patient is a 50-year-old female who presented to the emergency department for an evaluation of abdominal pain. The patient states that she has been having symptoms for approximate 1 month. She was seen by her primary care physician and was diagnosed with gallstones but no other follow-up was offered. The patient states that she went to [facility] recently was also told she may have problems with gallstones but no surgical evaluation was done. The patient states she has had loose bowel movements. She also complains of nausea but no vomiting. She denies having any chest pain. She denies having any shortness of breath or cough. She notices no lower extremity swelling. She denies having any headache. She is had no fever. The patient states symptoms started to worsen and she has been unable to eat or drink without having diarrhea so she presented to the emergency department today for further evaluation. I ( Aneta Bales MD ) got a call for consult acute cholecystitis, I reviewed pt's H/P, labs, U/S study with pt, pt is still have RUQ pain, ROS: See above HPI for pertinent positives & negatives. A total of 10 systems reviewed and were otherwise negative. PAST MEDICAL HISTORY: See Below PAST SURGICAL HISTORY: See Below FAMILY HISTORY: See Below SOCIAL HISTORY: See Below HOME MEDICATIONS: See Below ALLERGIES: See Below Allergies Allergy/AdvReac Type Severity Reaction Status Date / Time lamotrigine Allergy Mild RASH Verified 08/02/21 14:59 erythromycin base Allergy Unknown Unknown Verified 08/02/21 14:59 Macrolide Antibiotics Allergy Unknown ALLERGY TO Verified 08/02/21 14:59 ERYTHROMYCIN diphenhydramine AdvReac Intermediate restless Verified 08/02/21 14:59 legs lactose AdvReac Intermediate SJOGRENS Verified 08/02/21 15:04 SYNDROME hydroxyzine AdvReac Unknown RESTLESS Verified 08/02/21 14:59 LEGS Home Medications Medication Instructions Recorded Confirmed Type clonazepam 0.5 mg tablet (Klonopin) 0.5 mg PO BID 10/13/18 08/02/21 History loratadine 10 mg tablet (Claritin) 10 mg PO DAILY 10/13/18 08/02/21 History mirtazapine 30 mg tablet (Remeron) 30 mg PO HS 10/13/18 08/02/21 History rizatriptan 10 mg disintegrating 10 mg PO UD PRN 10/13/18 08/02/21 History tablet (Maxalt-VEST MAKER) Medical Marijuana 1 dose INHALATION DIRECTED PRN 08/02/21 08/02/21 History escitalopram oxalate 10 mg tablet 10 mg PO HS 08/02/21 08/02/21 History ondansetron 4 mg disintegrating 4 mg PO DIRECTED PRN 08/02/21 08/02/21 History tablet Patient History Medical History Depressed mood History of Sjogren's disease Lactose intolerance Lymphadenitis Surgical History No significant past surgical history Social History Smoking Status: Current every day smoker Preferred Language: Bulgarian marital status: Single current occupational status: employed Feels Safe at Home: Yes Review of Systems Constitutional: as per Subjective / HPI Eyes: as per Subjective / HPI Respiratory: as per Subjective / HPI Cardiovascular: as per Subjective / HPI Gastrointestinal: + abdominal pain, + nausea and + vomiting Genitourinary: as per Subjective / HPI Musculoskeletal: as per Subjective / HPI Psychiatric: as per Subjective / HPI Endocrine: as per Subjective / HPI Hematologic / Lymphatic: as per Subjective / HPI Physical Exam Constitutional: WD/WN, vitals as above Eyes: PERRL, conjunctivae normal, anicteric sclerae Neck: trachea midline, no thyromegaly Respiratory: normal respiratory effort, lungs clear to auscultation Cardiovascular: RRR, no murmur, no edema Gastrointestinal (Abdomen): soft, mild tenderness at RUQ, no rebound pain, no distend, BS + Musculoskeletal: no cyanosis or clubbing, extremities motor strength 5/5 Neurologic: patellar DTR's 2+ bilat, sensation intact Psychiatric: A+Ox3, euthymic affect Results & Data ([facility]) Vital Signs (Past 12 Hours) Vital Signs Temp Pulse Resp BP Pulse Ox 08/02/21 16:30 40 L 20 124/70 100 08/02/21 14:00 112/64 100 08/02/21 13:38 119/64 100 08/02/21 13:00 43 L 17 117/60 97 08/02/21 12:30 41 L 15 132/66 96 08/02/21 12:00 46 L 16 121/63 100 08/02/21 11:30 51 L 117/67 100 08/02/21 11:16 47 L 20 125/70 100 08/02/21 09:48 36.8 C 53 L 18 127/57 L 96 Laboratory Results Abnormal lab results 08/02/21 08/02/21 08/02/21 Range/Units 10:10 10:14 10:14 RBC 3.89 L (4.2-5.4) M/uL Hct 35.6 L (37-47) % Lymph # (Auto) 1.12 L (1.2-3.4) K/uL Potassium 3.4 L (3.5-5.1) mmol/L Chloride 112 H (98-107) mmol/L BUN/Creatinine Ratio 9.2 L (10-20) Calcium 8.4 L (8.5-10.1) mg/dl Alkaline Phosphatase 38 L (45-117) U/L Urine Ketones 2+ H (Negative) Diagnostic Findings US gallbladder CLINICAL HISTORY: Abdominal pain. COMPARISON STUDY: KUB August 02, 2021 and abdominal surgery October 20, 2011. FINDINGS: Liver is sonographically normal. There is no biliary ductal dilatation. The common bile duct measures 4 mm in caliber. There is mild gallbladder wall thickening. There are small gallstones within the gallbladder. Sonographic Chen sign was reported. There is trace pericholecystic fluid as well as trace perihepatic fluid. The pancreas is obscured. There is no right hydronephrosis. IMPRESSION: 1. Cholelithiasis, mild gallbladder wall thickening, trace pericholecystic fluid and sonographic Chen sign. Acute cholecystitis cannot be excluded. If indicated, a hepatobiliary scan could be obtained. 2. No biliary ductal dilatation. 3. Obscured pancreas. (1) Cholelithiasis Biliary obstruction: without biliary obstruction Cholecystitis acuity: acute Cholecystitis presence: with cholecystitis Cholelithiasis location: gallbladder Qualified Code(s): K80.00 - Calculus of gallbladder with acute cholecystitis without obstruction
[2021-08-02] MEDS ORDERED: ONDANSETRON 4 MG OD TAB PO PRN (18:14)
[2021-08-02] MEDS ORDERED: MEDICAL MARIJUANA INH PRN (18:18)
[2021-08-02] MEDS: LACTATED RINGER'S 1,000 ML IV SCH (18:31)
[2021-08-02] MEDS ORDERED: SUMAtriptan succinate 50 MG TAB PO PRN (19:02)
--- NOTE | 2021-08-02 19:02 | Electrocardiogram Report ---
Test Reason : Blood Pressure : / mmHG Vent. Rate : 046 BPM Atrial Rate : 046 BPM P-R Int : 150 ms QRS Dur : 090 ms QT Int : 472 ms P-R-T Axes : 077 071 069 degrees QTc Int : 413 ms Sinus bradycardia Otherwise normal ECG When compared with ECG of 13-OCT-2018 16:29, T wave inversion no longer evident in Anterior leads Confirmed by Jak Mendez ([id number]) on 08/02/2021 7:01:45 PM Referred By: Confirmed By:Shadi Mendez
--- NOTE | 2021-08-02 20:49 | Anesthesiology Consultation ---
Date of Service August 02, 2021 Assessment & Plan (1) Encounter for pre-operative examination: Chart Review Chart Review: Acceptable Risk for Surgery and Patient NOT seen in Pre Admission Testing covid neg 08/02/21 Consults Requested none History Surgery Operation Date: 08/03/21 12:00 Proposed Procedures p Laparoscopic Cholecystectomy - Aneta Bales MD Height/Weight Height: 5 ft 5 in Weight: 56 kg Allergies Allergy/AdvReac Type Severity Reaction Status Date / Time lamotrigine Allergy Mild RASH Verified 08/02/21 14:59 erythromycin base Allergy Unknown Unknown Verified 08/02/21 14:59 Macrolide Antibiotics Allergy Unknown ALLERGY TO Verified 08/02/21 14:59 ERYTHROMYCIN diphenhydramine AdvReac Intermediate restless Verified 08/02/21 14:59 legs lactose AdvReac Intermediate SJOGRENS Verified 08/02/21 15:04 SYNDROME hydroxyzine AdvReac Unknown RESTLESS Verified 08/02/21 14:59 LEGS Medications Home Medications Medication Instructions Recorded Confirmed Last Taken clonazepam 0.5 mg tablet (Klonopin) 0.5 mg PO BID 10/13/18 08/02/21 08/02/21 08:00 loratadine 10 mg tablet (Claritin) 10 mg PO DAILY 10/13/18 08/02/21 08/02/21 mirtazapine 30 mg tablet (Remeron) 30 mg PO HS 10/13/18 08/02/21 08/01/21 rizatriptan 10 mg disintegrating 10 mg PO UD PRN 10/13/18 08/02/21 Unknown tablet (Maxalt-DERIVATIVES TRADER) Medical Marijuana 1 dose INHALATION DIRECTED PRN 08/02/21 08/02/21 Unknown escitalopram oxalate 10 mg tablet 10 mg PO HS 08/02/21 08/02/21 08/01/21 ondansetron 4 mg disintegrating 4 mg PO DIRECTED PRN 08/02/21 08/02/21 Unknown tablet Active Medications Generic Name Dose Route Start Last Admin Trade Name Freq PRN Reason Stop Dose Admin Lactated Ringer's 1,000 mls @ 80 mls/hr 08/02/21 18:08 08/02/21 18:31 Lr IV 09/01/21 18:07 80 mls/hr .[id number] MOHIT Administration Ondansetron HCl 4 mg 08/02/21 18:14 08/02/21 19:37 Ondansetron 4 Mg Od Tab PO 09/01/21 18:13 4 mg Q6H PRN Administration Nausea And Vomiting Past Medical History Medical History Depressed mood History of Sjogren's disease Lactose intolerance Lymphadenitis Past Surgical History Surgical History No significant past surgical history Social History Smoking Status: Current every day smoker Hx Alcohol Use: No Hx Substance Use: No Physical Exam Vital Signs Last Vital Signs Temp 36.9 C 08/02/21 18:08 Pulse 40 L 08/02/21 18:08 Resp 18 08/02/21 18:08 BP 113/65 08/02/21 18:08 Pulse Ox 100 08/02/21 18:08 Testing Laboratory Results 08/02/21 10:14 08/02/21 10:14 Urine Color Yellow 08/02/21 10:10 Urine Appearance Clear (Clear) 08/02/21 10:10 Urine pH 6.0 (4.5-7.5) 08/02/21 10:10 Ur Specific Posey 1.012 (1.000-1.030) 08/02/21 10:10 Urine Protein Negative (Negative) 08/02/21 10:10 Urine Glucose (UA) Negative (Negative) 08/02/21 10:10 Urine Ketones 2+ (Negative) H 08/02/21 10:10 Urine Nitrite Negative (Negative) 08/02/21 10:10 Ur Leukocyte Esterase Negative (Negative) 08/02/21 10:10 Electrocardiogram Date: 08/02/21 DICTATED BY: Jak Mendez MD Test Reason : Blood Pressure : / mmHG Vent. Rate : 046 BPM Atrial Rate : 046 BPM P-R Int : 150 ms QRS Dur : 090 ms QT Int : 472 ms P-R-T Axes : 077 071 069 degrees QTc Int : 413 ms Sinus bradycardia Otherwise normal ECG When compared with ECG of 13-OCT-2018 16:29, T wave inversion no longer evident in Anterior leads Confirmed by Jak Mendez ([id number]) on 08/02/2021 7:01:45 PM
[2021-08-02] MEDS: HYDROmorphone INJ 0.5 MG/0.5 ML SYR IV PRN (21:20)
[2021-08-02] MEDS: clonazePAM 0.5 MG TAB PO SCH (21:20)
[2021-08-02] MEDS: PIPERACILLIN/TAZOBACTAM 3.375 GM in DEXTROSE 5% 100 ML IV SCH (21:20)
[2021-08-02] MEDS: ESCITALOPRAM OXALATE 10 MG TAB PO SCH (21:21)
[2021-08-02] MEDS: MIRTAZAPINE TAB 15 MG TAB PO SCH (21:21)
[2021-08-02] MEDS ORDERED: METOCLOPRAMIDE HCL INJ 5 MG/ML 2 ML VIAL IV PRN (22:55)
[2021-08-03] MEDS: PIPERACILLIN/TAZOBACTAM 3.375 GM in DEXTROSE 5% 100 ML IV SCH ×3 (05:44→22:16)
[2021-08-03 06:58] LABS: Basophils # (auto) 0.02 K/uL (0-0.2); Basophils % (auto) 0.5 %; Eosinophils # (auto) 0.07 K/uL (0-0.5); Eosinophils % (auto) 1.8 %; Hematocrit (blood only) 32.4 % (37-47); Hemoglobin 11.1 g/dL (12.0-16.0); Lymphocytes # (auto) 1.46 K/uL (1.2-3.4); Lymphocytes % (auto) 36.6 %; Mean Corpuscular Hemoglobin 31.4 pg (25-34); Mean Corpuscular Hgb Conc 34.3 g/dL (32-36); Mean Corpuscular Volume 91.8 fL (80-100); Mean Platelet Volume 10.2 fL (7.4-10.4); Monocytes # (auto) 0.47 K/uL (0.11-0.59); Monocytes % (auto) 11.8 %; Neutrophils # (auto) 1.97 K/uL (1.4-6.5); Neutrophils % (auto) 49.3 %; Platelet Count 232 K/uL (130-400); RDW Coefficient of Variation 13.9 % (11.5-14.5); Red Blood Count 3.53 M/uL (4.2-5.4); White Blood Count 3.99 K/uL (4.8-10.8)
[2021-08-03 07:33] LABS: BUN Creatinine Ratio 8.4 (10-20); Calcium 7.7 mg/dl (8.5-10.1); Creatinine Clr Calc Pharmacy 60.8 ml/min; Est GFR (African American) 77.6 ml/min; Est GFR (Non-African American) 66.9 ml/min; Potassium 3.3 mmol/L (3.5-5.1)
[2021-08-03 07:36] LABS: Albumin Globulin Ratio 0.9 (0.9-2); Bilirubin,Total 0.7 mg/dl (0.2-1); Globulin 3.2 gm/dl (2.5-4.0); Total Protein 6.2 gm/dl (6.4-8.2)
[2021-08-03] MEDS: clonazePAM 0.5 MG TAB PO SCH ×2 (07:48→22:15)
[2021-08-03] MEDS: LORATADINE 10 MG TAB PO SCH (07:49)
[2021-08-03] MEDS: oxyCODONE/ACETAMINOPHEN 5mg/325mg TAB PO PRN ×2 (10:35→17:50)
[2021-08-03] MEDS ORDERED: BACITRACIN OINT 15 GM TUBE ONE (11:08)
[2021-08-03] MEDS ORDERED: BUPIVACAINE 0.5 % 5 MG/1 ML MPF 30ML VIAL ONE (11:08)
[2021-08-03] MEDS ORDERED: LIDOCAINE 1% LOCAL 20 ML VIAL ONE (11:08)
[2021-08-03] MEDS ORDERED: ceFAZolin 2000MG 2,000 MG/15 ML SYR IV ONE (11:15)
--- NOTE | 2021-08-03 11:15 | History & Physical Bridge Note ---
Date of Service August 03, 2021 History & Physical Bridge Note I have examined the patient, reviewed the History & Physical and in the interval since the performance of the History & Physical I have noted the following changes of clinical significance: no changes noted
[2021-08-03] MEDS ORDERED: fentaNYL citrate 100 MCG/2 ML VIAL ONE ×3 (11:20→12:21)
[2021-08-03] MEDS ORDERED: MIDAZOLAM HCL 1 MG/ML 2ML VIAL ONE (11:20)
[2021-08-03] MEDS ORDERED: PROPOFOL IV EMULSION 10 MG/ML 20 ML VIAL IV ONE (11:20)
[2021-08-03] MEDS ORDERED: LIDOCAINE 2% 2 ML VIAL/AMP(20MG/ML) INFIL ONE (11:20)
[2021-08-03] MEDS ORDERED: ePHEDrine sulfate 50 MG/ML AMP IV PRN (11:28)
[2021-08-03] MEDS ORDERED: ATROPINE SULFATE 0.1 MG/ML 10ML SYR IV PRN (11:28)
[2021-08-03] MEDS ORDERED: ONDANSETRON INJ 2 MG/ML 2 ML VIAL IV PRN (11:28)
[2021-08-03] MEDS ORDERED: HYDROmorphone INJ 1 MG/ML SYRINGE IV PRN (11:28)
[2021-08-03] MEDS ORDERED: ONDANSETRON INJ 2 MG/ML 2 ML VIAL ONE (12:06)
[2021-08-03] MEDS ORDERED: DEXAMETHASONE SOD INJ 4 MG/ML VIAL ONE (12:06)
[2021-08-03] MEDS ORDERED: GLYCOPYRROLATE 0.2 MG/ML VIAL ONE (12:07)
[2021-08-03] MEDS ORDERED: NEOSTIGMINE METHYLSULFATE 1 MG/ML 10ML VIAL ONE (12:07)
--- NOTE | 2021-08-03 13:34 | Post Operative Brief Note ---
Immediate Post Op Note v1 Date of Surgery August 03, 2021 Pre & Post Diagnosis Operation Date: 08/03/21 12:00 Pre-Op Diagnosis: ACUTE Cholecystitis, CHOLELITHIASIS Post-Op Diagnosis: ACUTE Cholecystitis, CHOLELITHIASIS I identified the patient and participated in the time-out.: Yes Procedure Operation Date: 08/03/21 12:00 Actual Procedures p Laparoscopic Cholecystectomy(Not Applicable) - Aneta Bales MD Surgeon Aneta Bales MD [employer] LOPPER Estimated Blood Loss 20 Findings Consistent with Post-Op Diagnosis SIGNIFICANT INFLAMMATION ON GALLBLADDER WALL, Fluids 1200ML Specimens GALLBLADDER Anesthesia Type General Complications NONE Disposition Accompanied Patient To Recovery: Yes
[2021-08-03] MEDS: fentaNYL citrate 100 MCG/2 ML VIAL IV PRN ×4 (14:06→14:41)
[2021-08-03] MEDS ORDERED: DROPERIDOL 5 MG/2 ML VIAL IV STA (14:27)
--- NOTE | 2021-08-03 15:00 | Anesthesiology Progress Note ---
Date of Service August 03, 2021 Anesthesia Post Procedure Vital Signs Vital Signs: Temp Pulse Pulse Pulse Resp BP BP 08/03/21 14:52 44 L 24 146/70 H 08/03/21 14:40 58 L 21 147/73 H 08/03/21 14:30 48 L 20 132/67 08/03/21 14:20 48 L 20 144/76 H 08/03/21 14:05 48 L 17 147/76 H 08/03/21 13:55 53 L 17 140/78 08/03/21 13:47 36.5 C 94 H 17 155/67 H 08/03/21 11:22 37.0 C 42 L 18 101/79 08/03/21 07:24 36.7 C 52 L 18 103/55 L 08/02/21 22:47 36.4 C L 38 L 14 101/54 L 08/02/21 18:08 36.9 C 40 L 18 113/65 08/02/21 17:36 41 L 18 113/71 08/02/21 16:30 40 L 20 124/70 Pulse Ox 08/03/21 14:52 100 08/03/21 14:40 100 08/03/21 14:30 98 08/03/21 14:20 100 08/03/21 14:05 100 08/03/21 13:55 100 08/03/21 13:47 97 08/03/21 11:22 100 08/03/21 07:24 97 08/02/21 22:47 97 08/02/21 18:08 100 08/02/21 17:36 98 08/02/21 16:30 100 Pain Intensity Head: Pain Intensity: 5 Abdomen: Pain Intensity: 10 Transfer of Care Handoff Completed per policy Notes Mental Status: alert / awake / arousable and participated in evaluation Patient Amnestic to Procedure: Yes Nausea / Vomiting: adequately controlled Pain: adequately controlled Airway Patency, RR, SpO2: stable & adequate BP & HR: stable & adequate Hydration State: stable & adequate Anesthetic Complications: no major complications apparent and Pt Satisfied with anesthetic care
--- NOTE | 2021-08-03 15:57 | Operative Report (OR) ---
DATE OF PROCEDURE: 08/03/2021. PREOPERATIVE DIAGNOSES: Acute cholecystitis with cholelithiasis. POSTOPERATIVE DIAGNOSES: Acute cholecystitis, cholelithiasis. OPERATION: Laparoscopic cholecystectomy. SURGEON: Aneta Bales MD. ANESTHESIA: General. ESTIMATED BLOOD LOSS: About 20 mL. FINDINGS: Significant inflammation on the gallbladder wall thickening, edema, acute cholecystitis with cholelithiasis. COMPLICATIONS: None. INDICATIONS FOR THE PROCEDURE: This is a 50-year-old female who was admitted to the hospital with right upper quadrant pain. The patient had ultrasound diagnosis of acute cholecystitis with cholelithiasis. I recommended to do laparoscopic cholecystectomy, possible open, possible cholangiogram. I did talk to the patient about the benefit, risk, alternate procedure. I indicated the risks may include, but not limited to, such as bleeding, infection, injury to other organs, incisional hernia may need ERCP. The patient understands and she signed informed consent and I answered all questions. DETAILS OF THE PROCEDURE: After we identified the patient and verified the procedure, we brought the patient to the OR, put the patient in the supine position. The patient received SCD on bilateral legs to prevent DVT. Also, patient received 2 grams of Ancef IV for prophylactic antibiotic. The patient received general anesthesia without difficulty. So, abdomen was prepped and draped in routine sterile fashion. After timeout, I injected the local anesthesia by using 1% lidocaine mixed with 0.5% Marcaine just above the umbilicus. Then, I made a small incision just above the umbilicus, opened fascia, opened peritoneum. Under direct vision, put a Seble trocar in, connected to CO2 to create pneumoperitoneum, flow rate at 6 liters per minute, pressure not more than 14 mmHg. Once we get a nice pneumoperitoneum, we put a camera in, looked around the abdomen, it shows normal finding on the liver; however, the gallbladder showed significant inflammation, gallbladder wall thickening, edema, confirmed diagnosis of acute cholecystitis. Once confirmed diagnosis, we put another two 5 mm trocars on the right upper quadrant, one 12 trocar on the epigastric area. Then, we used the grasper to hold the base of the gallbladder, put in the direction of the diaphragm. Another grasper to hold the pouch of gallbladder. The cystic duct was identified and mobilized. However, the cystic duct there was an area of the significant inflammation and we mobilized the cystic artery first. We put 2 clips on the proximal cystic artery and one on the distal cystic artery, then used a scissor for transection of cystic artery. Based on significant inflammation on the cystic duct, I decided to do a top-down technique from top to take down the gallbladder near the cystic duct area. At this moment, I used a 60 mm Endo-ASHKAN and transected near the cystic duct and then we reopened remaining of the gallbladder near the cystic duct and removed a couple of small stones and at this moment, we used the Harmonic to take down remainder of the gallbladder near the cystic duct and also I used the Endoloops to close the cystic duct. Rechecked, no bile leak, no remaining stones. Rechecked the liver bed. No active bleeding, no bile leak. Then, we removed gallbladder through the catch bag. Then, we reinserted the Seble trocar in, connected to CO2 to create pneumoperitoneum, again looked around the abdomen, no active bleeding, no bile leak from the liver bed. Then, we removed all trocars under direct vision. No active bleeding from the trocar site. Pneumoperitoneum was released, now closed umbilical incision fascial layer by using 0 Vicryl [id number] x2, closed subcutaneous layer by using 2-0 Vicryl interruptedly, closed skin by using 4-0 Vicryl continuous running, closed the epigastric incision and fascial layer by using 0 Vicryl [id number] x2, closed subcutaneous layer by using 2-0 Vicryl interruptedly, closed skin by using 4-0 Vicryl interruptedly, closed another two 5 mm trocar site of skin only by using 4-0 Vicryl. Then, we put the dressing on. The patient tolerated the procedure well. All instrument, needle and sponge counts were correct x2 at the end of the case. The patient was transferred to recovery room in stable condition. The specimen was sent to pathology. After the procedure, I did talk to the patient about the OR finding and the procedure we did, patient understands. Job ID: [id number] [facility]
[2021-08-03] MEDS: HYDROmorphone INJ 0.5 MG/0.5 ML SYR IV PRN ×2 (16:23→22:24)
[2021-08-03] MEDS: LACTATED RINGER'S 1,000 ML IV SCH ×2 (16:23→22:15)
[2021-08-03] MEDS ORDERED: ACETAMINOPHEN 325 MG TAB PO PRN (16:41)
[2021-08-03] MEDS: MIRTAZAPINE TAB 15 MG TAB PO SCH (22:16)
[2021-08-03] MEDS: ESCITALOPRAM OXALATE 10 MG TAB PO SCH (23:11)
[2021-08-04] MEDS: PIPERACILLIN/TAZOBACTAM 3.375 GM in DEXTROSE 5% 100 ML IV SCH (05:55)
[2021-08-04 06:52] LABS: Basophils # (auto) 0.01 K/uL (0-0.2); Basophils % (auto) 0.1 %; Hematocrit (blood only) 33.5 % (37-47); Hemoglobin 11.7 g/dL (12.0-16.0); Immature Granulocytes # (auto) 0.02 K/uL (0.00-0.02); Immature Granulocytes % (auto) 0.2 %; Lymphocytes # (auto) 1.76 K/uL (1.2-3.4); Lymphocytes % (auto) 19.2 %; Mean Corpuscular Hemoglobin 31.8 pg (25-34); Mean Corpuscular Hgb Conc 34.9 g/dL (32-36); Monocytes # (auto) 0.92 K/uL (0.11-0.59); Neutrophils # (auto) 6.45 K/uL (1.4-6.5); Neutrophils % (auto) 70.5 %; Platelet Count 241 K/uL (130-400); RDW Coefficient of Variation 13.6 % (11.5-14.5); RDW Standard Deviation 45.6 fL (36.4-46.3); Red Blood Count 3.68 M/uL (4.2-5.4); White Blood Count 9.16 K/uL (4.8-10.8)
[2021-08-04 07:30] LABS: Albumin Level 3.2 gm/dl (3.4-5.0); BUN Creatinine Ratio 6.7 (10-20); Calcium 8.4 mg/dl (8.5-10.1); Creatinine Clr Calc Pharmacy 54.2 ml/min; Est GFR (African American) 67.5 ml/min; Est GFR (Non-African American) 58.3 ml/min; Potassium 3.3 mmol/L (3.5-5.1)
[2021-08-04 07:33] LABS: Albumin Globulin Ratio 0.9 (0.9-2); Bilirubin,Total 0.6 mg/dl (0.2-1); Globulin 3.4 gm/dl (2.5-4.0); Total Protein 6.6 gm/dl (6.4-8.2)
[2021-08-04] MEDS: clonazePAM 0.5 MG TAB PO SCH (08:45)
[2021-08-04] MEDS: LORATADINE 10 MG TAB PO SCH (08:45)
--- NOTE | 2021-08-04 09:29 | Surgery Progress Note ---
Date of Service August 04, 2021 Assessment & Plan (1) Acute cholecystitis: Plan: POD # 1 s/p laparoscopic cholecystectomy - avss - postop pain at incisions controlled - no n,v - t.bili and lfts wnl , AST mildly elevated Plan: Doing well postop Advance diet as tolerated discharge home today discharge instructions reviewed Rx Percocet prn pain sent to pharmacy f/u surgical office in [address] Bales has seen patient agrees with above Admission and Anticipated Discharge Date Admission Date: August 02, 2021 Subjective Feeling good preop pain resolved, pain at incisions controlled tolerated clears, no n,v no chest pain/sob urinating without difficulty Physical Exam Constitutional: WD/WN, vitals as above no acute distress and not ill appearing Respiratory: normal respiratory effort Gastrointestinal (Abdomen): Inspection/Auscultation: abdomen normal to inspection; abdomen not distended Percussion/Palpation: + abdomen tender (mild at incision sites) and abdomen soft; no guarding and abdomen not rigid Skin: no rashes, warm and dry + incision (serosanguineous drainge on two dressings, otherwise dry and intact) Psychiatric: A+Ox3, euthymic affect Results & Data ([facility]) Vital Signs (Past 12 Hours) Vital Signs Temp Pulse Resp BP Pulse Ox Pulse Ox 08/04/21 08:12 97 08/04/21 07:56 36.7 C 50 L 20 120/70 97 08/04/21 02:20 37.1 C 54 L 14 102/54 L 93 08/03/21 22:15 98 08/03/21 22:12 36.8 C 50 L 14 124/70 98 Laboratory Results 08/04/21 08/04/21 Range/Units 06:38 06:38 WBC 9.16 (4.8-10.8) K/uL RBC 3.68 L (4.2-5.4) M/uL Hgb 11.7 L (12.0-16.0) g/dL Hct 33.5 L (37-47) % MCV 91.0 (80-100) fL MCH 31.8 (25-34) pg MCHC 34.9 (32-36) g/dL RDW Std Deviation 45.6 (36.4-46.3) fL RDW Coeff of Angel 13.6 (11.5-14.5) % Plt Count 241 (130-400) K/uL MPV 10.0 (7.4-10.4) fL Immature Gran % (Auto) 0.2 % Neut % (Auto) 70.5 % Lymph % (Auto) 19.2 % Wirt % (Auto) 10.0 % Eos % (Auto) 0.0 % Baso % (Auto) 0.1 % Neut # (Auto) 6.45 (1.4-6.5) K/uL Lymph # (Auto) 1.76 (1.2-3.4) K/uL Wirt # (Auto) 0.92 H (0.11-0.59) K/uL Eos # (Auto) 0.00 (0-0.5) K/uL Baso # (Auto) 0.01 (0-0.2) K/uL Immature Gran # (Auto) 0.02 (0.00-0.02) K/uL Sodium 143 (136-145) mmol/L Potassium 3.3 L (3.5-5.1) mmol/L Chloride 112 H (98-107) mmol/L Carbon Dioxide 26 (21-32) mmol/L Anion Gap 5.0 (3-11) BUN 7 (7-18) mg/dl Creatinine 1.11 (0.6-1.2) mg/dl Est Cr Clr Drug Dosing 54.2 ml/min Est GFR ( Amer) 67.5 ml/min Est GFR (Non-Af Amer) 58.3 ml/min BUN/Creatinine Ratio 6.7 L (10-20) Glucose 96 (70-99) mg/dl Calcium 8.4 L (8.5-10.1) mg/dl Total Bilirubin 0.6 (0.2-1) mg/dl AST 54 H (15-37) U/L ALT 57 (12-78) U/L Alkaline Phosphatase 34 L (45-117) U/L Total Protein 6.6 (6.4-8.2) gm/dl Albumin 3.2 L (3.4-5.0) gm/dl Globulin 3.4 (2.5-4.0) gm/dl Albumin/Globulin Ratio 0.9 (0.9-2)
--- NOTE | 2021-08-04 10:17 | Discharge Summary ---
Date of Service August 04, 2021 Admission HPI Per Admitting Provider HPI: The patient is a 50-year-old female who presented to the emergency department for an evaluation of abdominal pain. The patient states that she has been having symptoms for approximate 1 month. She was seen by her primary care physician and was diagnosed with gallstones but no other follow-up was offered. The patient states that she went to [facility] recently was also told she may have problems with gallstones but no surgical evaluation was done. The patient states she has had loose bowel movements. She also complains of nausea but no vomiting. She denies having any chest pain. She denies having any shortness of breath or cough. She notices no lower extremity swelling. She denies having any headache. She is had no fever. The patient states symptoms started to worsen and she has been unable to eat or drink without having diarrhea so she presented to the emergency department today for further evaluation. I ( Aneta Bales MD ) got a call for consult acute cholecystitis, I reviewed pt's H/P, labs, U/S study with pt, pt is still have RUQ pain, Principal Diagnosis Acute calculous cholecystitis Discharge Data Allergies Allergy/AdvReac Type Severity Reaction Status Date / Time lamotrigine Allergy Mild RASH Verified 08/02/21 14:59 erythromycin base Allergy Unknown Unknown Verified 08/02/21 14:59 Macrolide Antibiotics Allergy Unknown ALLERGY TO Verified 08/02/21 14:59 ERYTHROMYCIN diphenhydramine AdvReac Intermediate restless Verified 08/02/21 14:59 legs lactose AdvReac Intermediate SJOGRENS Verified 08/02/21 15:04 SYNDROME hydroxyzine AdvReac Unknown RESTLESS Verified 08/02/21 14:59 LEGS Consultations 08/02/21 14:04 Consult General Surgery Stat Procedures Performed Operation Date: 08/03/21 12:00 Actual Procedures p Laparoscopic Cholecystectomy(Not Applicable) - Aneta Bales MD Ordered Studies 08/02/21 12:08 US gallbladder Stat Hospital Course (1) Acute cholecystitis: Patient was admitted to hospital from emergency department and started on IV zosyn, pain management as needed, Clear liquid diet and NPO after midnight. Patient was taken to operating room on 08/03/2021 and underwent laparoscopic cholecystectomy. Patient had evidence of acute cholecystitis. Patient tolerated procedure well and was transferred to recovery and back to medical/surgical floor for postop care. IV Zosyn was continued, clear liquid diet, activity as tolerated, and IV Dilaudid and PO Percocet prn pain. POD # 1 afebrile, vitals stable, postop pain controlled, tolerated clear liquids, urinating without difficulty. Labs wnl including cbc, t. bili and lfts with only mild elevation of AST. Patient was discharged home on POD # 1 in stable condition. Total Time Total Time Spent Total Time Spent (In Minutes): 20 Total Time Includes: Examination of the Patient, Discharge Planning and Medication Reconciliation Discharge Plan Discharge Items Patient Disposition: Home - Self-Care Reason For Visit: VOMITING, LOWER ABDOMINAL PAIN Discharge Diagnosis: Acute cholecystitis Condition on Discharge: Good Activity: Per Instructions section Non-emergency contact: Surgeon Call non-emergency contact if: your pain is not controlled, your pain is worsening, your pain is concerning for you, you have a fever, your temperature is above 101, your wound has increased redness, your wound has increased drainage and your wound pain has increased Follow-up/Referrals: Neeta Flores DO [Primary Care Provider] - Aneta Bales MD [Physician] - Diet: Regular Addtl Attending Provider Instructions: Post-Surgical ~Discharge Instructions Activity Recommendations: - lifting limitation: (25 pounds for 4 weeks), - exercise/sex/sports limit: (nonstrenuous for 2 weeks), - driving or machine use limit: (none for 1 week or until pain free and no longer taking narcotic pain medication), - Shower/bathe limit: (may shower in 3 days) Diet: - Resume previous diet SPECIAL CARE INSTRUCTIONS: - May shower on Saturday. Sponge bath and wash hair in meantime. On Saturday, re move outer dressings and shower. Let water run over area and pat dry. - Leave steri strips on for one week and then remove. They may fall off on their own that is okay. - Call the surgeon's office with any questions or concerns - - (ex. temperature higher than 101 degrees F, excessive bleeding or pain). MEDICATIONS: - Resume previous medications unless instructed otherwise by your surgeon. - May alternate extra strength Tylenol and Ibuprofen as needed for mild pain -650 mg Tylenol every 6 hours as needed - Ibuprofen 600 mg every 6 hours as needed (take with food) - Percocet 1 every 4 hours, as needed for severe pain - Recommend daily stool softener (Colace) while taking narcotic pain medicaiton to prevent constipation. FOLLOW UP VISIT: - If not already scheduled, please call the office to schedule a two week follow-up appointment. 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] 10 mg tablet,disintegrating 10 mg PO UD PRN (Reason: Migraine Headache) RF: 0 mirtazapine [Remeron] 30 mg tablet 30 mg PO HS RF: 0 loratadine [Claritin] 10 mg Tablet 10 mg PO DAILY RF: 0 ondansetron 4 mg tablet,disintegrating 4 mg PO DIRECTED PRN (Reason: NAUSEA/VOMITING) RF: 0 escitalopram oxalate 10 mg tablet 10 mg PO HS RF: 0 Medical Marijuana 1 dose inhalation DIRECTED PRN (Reason: PAIN, ANXIETY) RF: 0 Discharge Orders: Discharge Order (Routine); Ordered 08/04/21 Ordered By: Mariann Duque Admission Data Admit Date/Time: 08/02/21 16:37 Attending Provider: Aneta Bales Admit Provider: Aneta Bales Primary Care Provider: Neeta Flores Other Providers: Aneta Bales
== END 2021-08-04 13:16 | disposition home or self-care (01) ==
LOC: ED 09:37 → 3W 16:37 → INTOOBSV 16:37 → 3W 17:36

== ENCOUNTER 2022-10-11 12:02 | Inpatient (IN) ==
--- NOTE | 2022-10-11 12:40 | Emergency Department Note ---
Impression & Plan Suicidal ideation ED Provider Note NAME: YASMANY BARRAGAN AGE: 51 SEX: F : 1970 ARRIVES VIA: Walk-In INFORMANT: [Patient] ED PROVIDER(S): [Jeffry Swenson MD] CHIEF COMPLAINT: Suicidal HISTORY OF PRESENT ILLNESS: The patient is a 51-year-old female who has a history of depression. She is on medication daily. The patient has been trying for a long time to see a psyc hiatric provider in the outpatient setting but has been unsuccessful. She is coming up upon the anniversary of her twins sisters and she feels more stressed and more depressed. Last night, she planned to wreck her car or use her revolver to end her life. She decided to come to the hospital today for help. She is voluntary and would like inpatient psychiatric care. The patient has some chronic pain issues at baseline. There has been no respiratory complaints, no cough or cold or congestion REVIEW OF SYSTEMS: See HPI for pertinent positives and negatives. A total of ten systems were reviewed and were otherwise negative. PMHx/PSHx: See Below SOCIAL HISTORY: See Below. PHYSICAL EXAM: GENERAL: Patient is in no acute distress. HEENT: No acute trauma, normocephalic atraumatic, mucous membranes moist, no nasal congestion, no scleral icterus. NECK: No stridor, no adenopathy, no meningismus, trachea is midline. LUNGS: Clear to auscultation bilaterally, no wheeze, no rhonchi, breath sounds equal. HEART: Without murmurs gallops or rubs, regular rate and rhythm. ABDOMEN: Soft, nontender, bowel sounds positive, no peritonitis. EXTREMITIES: No cyanosis or edema, full range of motion of all the joints without pain or difficulty, no signs for acute trauma. NEUROLOGIC: Oriented x 3, no acute motor or sensory deficits, no focal weakness. SKIN: No rash, no jaundice, no diaphoresis. Psychiatric: Flat affect. Voluntary. Cooperative. Admits to suicidal ideation with a plan to either wreck her car or use a revolver to end her life. DIFFERENTIAL DIAGNOSIS: Mood disorder, infection, hypoglycemia, psychosis, suicidality, depression, electrolyte abnormalities, cardiac sources, intracerebral event, toxicologic etiology, trauma, neurologic event, as well as other pathologies. EMERGENCY DEPARTMENT COURSE/PROCEDURES: MEDICAL DECISION MAKING: There is no leukocytosis or concerning anemia. There is a normal platelet count. No renal failure or significant electrolyte abnormality. No concerning liver enzyme elevation. The patient appeared to be in a euthyroid state. testing returned negative. Urinalysis did not show infection. Urine tox was positive for marijuana. Alcohol, aspirin and Tylenol levels were basically undetectable. COVID test is pending. The patient presents with suicidal ideation. She has a plan to wreck her car or use her revolver to end her life. She is voluntary, she is cooperative. The patient was felt medically clear. She was seen by psychiatry case management. A bed search is underway. At this point, the case has been assumed by Dr. Walsh at the change of shift. Please see has notes for her final disposition. Past Med/Surg History Medical History Acute cholecystitis Cholelithiasis Depressed mood History of Sjogren's disease Lactose intolerance Lymphadenitis Surgical History No significant past surgical history Social History Smoking Status: Current some day smoker Tobacco Type: Cigarettes Hx Alcohol Use: No Hx Substance Use: No Preferred Language: Bruneian Communication Ability: Effective Beliefs That Will Affect Care: None marital status: Single Current Living Situation: Significant Other current occupational status: employed Feels Safe at Home: Yes Assistive Devices: None Allergies Allergies Allergy/AdvReac Type Severity Reaction Status Date / Time lamotrigine Allergy Mild RASH Verified 07/04/22 17:42 erythromycin base Allergy Unknown Unknown Verified 07/04/22 17:42 Macrolide Antibiotics Allergy Unknown ALLERGY TO Verified 07/04/22 17:42 ERYTHROMYCIN diphenhydramine AdvReac Intermediate restless Verified 07/04/22 17:42 legs lactose AdvReac Intermediate SJOGRENS Verified 07/04/22 17:42 SYNDROME hydroxyzine AdvReac Unknown RESTLESS Verified 07/04/22 17:42 LEGS Home Meds Home Medications Medication Instructions Recorded Confirmed clonazepam 0.5 mg tablet (Klonopin) 0.5 mg PO BID 10/13/18 10/11/22 loratadine 10 mg tablet (Claritin) 10 mg PO DAILY Seasonal Allergy 10/13/18 10/11/22 rizatriptan 10 mg disintegrating 10 mg PO UD PRN Migraine Headache 10/13/18 10/11/22 tablet (Maxalt-COTTON PICKER) Medical Marijuana 1 dose inhalation DIRECTED PRN 08/02/21 10/11/22 PAIN, ANXIETY escitalopram oxalate 10 mg tablet 10 mg PO HS 08/02/21 10/11/22 ondansetron 4 mg disintegrating 4 mg PO DIRECTED PRN 08/02/21 10/11/22 tablet NAUSEA/VOMITING multivitamin 1 tab PO DAILY 07/04/22 10/11/22 clonidine HCl 0.1 mg tablet 0.1 mg PO HS 10/11/22 10/11/22 duloxetine 20 mg capsule,delayed 20 mg PO QAM 10/11/22 10/11/22 release mirtazapine 15 mg tablet 15 mg PO HS 10/11/22 10/11/22 rosuvastatin 40 mg tablet 40 mg PO QAM 10/11/22 10/11/22 sulindac 200 mg tablet 200 mg PO BIDWMEAL 10/11/22 10/11/22 Results & Data (ED) Vital Signs Vital Signs - 24 hr 10/11/22 12:10 10/11/22 14:00 Temperature 36.7 C Temperature Source Temporal Artery Scan Pulse Rate 77 Pulse Rate [Finger] 58 L Pulse Rhythm [Finger] Regular Respiratory Rate 16 14 Respiratory Effort / Characteristics Non-Labored Spontaneous Non-Labored Spontaneous Respiratory Depth Normal Normal Respiratory Pattern Regular Blood Pressure 126/68 Blood Pressure [Right Arm] 112/66 Blood Pressure Mean 87 Blood Pressure Mean [Right Arm] 81 Blood Pressure Position Sitting Pulse Oximetry 97 100 Oxygen Delivery Method Room Air Room Air Sepsis Recent Fever Within 48 Hours No Sepsis New/Unexplained Change in Mental Status No Sepsis Action Taken by Nursing No Action Required Home Medications Current Medication List: was personally reviewed by me Laboratory Data Attestation: I reviewed the patient's lab results. Result diagrams: 10/11/22 12:45 10/11/22 12:45 Lab Results 10/11/22 10/11/22 10/11/22 Range/Units 12:27 12:27 12:45 WBC 6.21 (4.8-10.8) K/ul RBC 3.99 (3.93-5.22) M/uL Hgb 12.8 (12.0-16.0) g/dl Hct 36.6 (34.1-44.9) % MCV 91.7 (80.0-100.0) fL MCH 32.1 (25.0-34.0) pg MCHC 35.0 (32.0-36.0) g/dL RDW Std Deviation 43.2 (36.4-46.3) fL RDW Coeff of Angel 12.7 (11.5-14.5) % Plt Count 205 (130-400) K/uL MPV 10.4 (9.4-12.3) fL Immature Gran % (Auto) 0.2 % Neut % (Auto) 71.7 % Lymph % (Auto) 20.5 % Carson % (Auto) 6.9 % Eos % (Auto) 0.2 % Baso % (Auto) 0.5 % Neut # (Auto) 4.46 (1.4-6.5) K/uL Lymph # (Auto) 1.27 (1.2-3.4) K/uL Carson # (Auto) 0.43 (0.24-0.82) K/uL Eos # (Auto) 0.01 (0-0.50) K/uL Baso # (Auto) 0.03 (0-0.2) K/uL Immature Gran # (Auto) 0.01 (0.00-0.02) K/uL Sodium (136-145) mmol/L Potassium (3.5-5.1) mmol/L Chloride (98-107) mmol/L Carbon Dioxide (21-32) mmol/L Anion Gap (3-11) BUN (6-23) mg/dl Creatinine (0.6-1.2) mg/dl Est Cr Clr Drug Dosing ml/min Est GFR ( Amer) ml/min Est GFR (Non-Af Amer) ml/min BUN/Creatinine Ratio (10-20) Glucose (70-99(Fasting)) mg/dl Calcium (8.5-10.1) mg/dl Total Bilirubin (0.2-1.0) mg/dl AST (13-39) U/L ALT (7-52) U/L Alkaline Phosphatase (34-104) U/L Total Protein (6.0-8.3) gm/dl Albumin (3.4-5.0) gm/dl Globulin (2.5-4.0) gm/dl Albumin/Globulin Ratio (0.9-2) TSH (0.300-4.500) uIu/ml HCG, Qual (Negative) Urine Color Yellow Urine Appearance Clear (Clear) Urine pH 6.5 (4.5-7.5) Ur Specific [place] 1.017 (1.000-1.030) Urine Protein Trace H (Negative) Urine Glucose (UA) Negative (Negative) Urine Ketones 1+ H (Negative) Urine Blood Negative (Negative) Urine Nitrite Negative (Negative) Urine Bilirubin Negative (Negative) Urine Urobilinogen Negative (Negative) Ur Leukocyte Esterase Negative (Negative) Urine WBC (Auto) 1-5 (0-5) /hpf Urine RBC (Auto) 0-4 (0-4) /hpf U Hyaline Cast (Auto) 1-5 (0-5) /lpf U Epithel Cells (Auto) >30 H (0-5) /lpf Urine Bacteria (Auto) Negative (Negative) Salicylates (3.0-30) mg/dl Urine Opiates Screen Neg (Neg) Ur Methadone, Qual Neg (Neg) Acetaminophen (10-30) ug/ml Urine Barbiturates Neg (Neg) Ur Phencyclidine (PCP) Neg (Neg) U Amphetamin/Meth Scrn Neg (Neg) MDMA (Ecstasy) Screen Neg (Neg) U Benzodiazepines Scrn Neg (Neg) Ur Cocaine Metabolite Neg (Neg) U Marijuana (THC) Screen Pos H (Neg) Ethyl Alcohol mg/dL (<10.0) mg/dl 10/11/22 10/11/22 10/11/22 Range/Units 12:45 12:45 12:45 WBC (4.8-10.8) K/ul RBC (3.93-5.22) M/uL Hgb (12.0-16.0) g/dl Hct (34.1-44.9) % MCV (80.0-100.0) fL MCH (25.0-34.0) pg MCHC (32.0-36.0) g/dL RDW Std Deviation (36.4-46.3) fL RDW Coeff of Angel (11.5-14.5) % Plt Count (130-400) K/uL MPV (9.4-12.3) fL Immature Gran % (Auto) % Neut % (Auto) % Lymph % (Auto) % Carson % (Auto) % Eos % (Auto) % Baso % (Auto) % Neut # (Auto) (1.4-6.5) K/uL Lymph # (Auto) (1.2-3.4) K/uL Carson # (Auto) (0.24-0.82) K/uL Eos # (Auto) (0-0.50) K/uL Baso # (Auto) (0-0.2) K/uL Immature Gran # (Auto) (0.00-0.02) K/uL Sodium 139 (136-145) mmol/L Potassium 4.3 (3.5-5.1) mmol/L Chloride 109 H (98-107) mmol/L Carbon Dioxide 23 (21-32) mmol/L Anion Gap 7 (3-11) BUN 18 (6-23) mg/dl Creatinine 1.00 (0.6-1.2) mg/dl Est Cr Clr Drug Dosing 60.6 ml/min Est GFR ( Amer) 76.1 ml/min Est GFR (Non-Af Amer) 65.6 ml/min BUN/Creatinine Ratio 18.0 (10-20) Glucose 87 (70-99(Fasting)) mg/dl Calcium 9.0 (8.5-10.1) mg/dl Total Bilirubin 0.6 (0.2-1.0) mg/dl AST 21 (13-39) U/L ALT 16 (7-52) U/L Alkaline Phosphatase 39 (34-104) U/L Total Protein 7.0 (6.0-8.3) gm/dl Albumin 4.2 (3.4-5.0) gm/dl Globulin 2.8 (2.5-4.0) gm/dl Albumin/Globulin Ratio 1.5 (0.9-2) TSH 0.901 (0.300-4.500) uIu/ml HCG, Qual (Negative) Urine Color Urine Appearance (Clear) Urine pH (4.5-7.5) Ur Specific [place] (1.000-1.030) Urine Protein (Negative) Urine Glucose (UA) (Negative) Urine Ketones (Negative) Urine Blood (Negative) Urine Nitrite (Negative) Urine Bilirubin (Negative) Urine Urobilinogen (Negative) Ur Leukocyte Esterase (Negative) Urine WBC (Auto) (0-5) /hpf Urine RBC (Auto) (0-4) /hpf U Hyaline Cast (Auto) (0-5) /lpf U Epithel Cells (Auto) (0-5) /lpf Urine Bacteria (Auto) (Negative) Salicylates < 3.0 L (3.0-30) mg/dl Urine Opiates Screen (Neg) Ur Methadone, Qual (Neg) Acetaminophen 3 L (10-30) ug/ml Urine Barbiturates (Neg) Ur Phencyclidine (PCP) (Neg) U Amphetamin/Meth Scrn (Neg) MDMA (Ecstasy) Screen (Neg) U Benzodiazepines Scrn (Neg) Ur Cocaine Metabolite (Neg) U Marijuana (THC) Screen (Neg) Ethyl Alcohol mg/dL (<10.0) mg/dl 10/11/22 10/11/22 Range/Units 12:45 12:45 WBC (4.8-10.8) K/ul RBC (3.93-5.22) M/uL Hgb (12.0-16.0) g/dl Hct (34.1-44.9) % MCV (80.0-100.0) fL MCH (25.0-34.0) pg MCHC (32.0-36.0) g/dL RDW Std Deviation (36.4-46.3) fL RDW Coeff of Angel (11.5-14.5) % Plt Count (130-400) K/uL MPV (9.4-12.3) fL Immature Gran % (Auto) % Neut % (Auto) % Lymph % (Auto) % Carson % (Auto) % Eos % (Auto) % Baso % (Auto) % Neut # (Auto) (1.4-6.5) K/uL Lymph # (Auto) (1.2-3.4) K/uL [place] # (Auto) (0.24-0.82) K/uL Eos # (Auto) (0-0.50) K/uL Baso # (Auto) (0-0.2) K/uL Immature Gran # (Auto) (0.00-0.02) K/uL Sodium (136-145) mmol/L Potassium (3.5-5.1) mmol/L Chloride (98-107) mmol/L Carbon Dioxide (21-32) mmol/L Anion Gap (3-11) BUN (6-23) mg/dl Creatinine (0.6-1.2) mg/dl Est Cr Clr Drug Dosing ml/min Est GFR ( Amer) ml/min Est GFR (Non-Af Amer) ml/min BUN/Creatinine Ratio (10-20) Glucose (70-99(Fasting)) mg/dl Calcium (8.5-10.1) mg/dl Total Bilirubin (0.2-1.0) mg/dl AST (13-39) U/L ALT (7-52) U/L Alkaline Phosphatase (34-104) U/L Total Protein (6.0-8.3) gm/dl Albumin (3.4-5.0) gm/dl Globulin (2.5-4.0) gm/dl Albumin/Globulin Ratio (0.9-2) TSH (0.300-4.500) uIu/ml HCG, Qual Negative (Negative) Urine Color Urine Appearance (Clear) Urine pH (4.5-7.5) Ur Specific [place] (1.000-1.030) Urine Protein (Negative) Urine Glucose (UA) (Negative) Urine Ketones (Negative) Urine Blood (Negative) Urine Nitrite (Negative) Urine Bilirubin (Negative) Urine Urobilinogen (Negative) Ur Leukocyte Esterase (Negative) Urine WBC (Auto) (0-5) /hpf Urine RBC (Auto) (0-4) /hpf U Hyaline Cast (Auto) (0-5) /lpf U Epithel Cells (Auto) (0-5) /lpf Urine Bacteria (Auto) (Negative) Salicylates (3.0-30) mg/dl Urine Opiates Screen (Neg) Ur Methadone, Qual (Neg) Acetaminophen (10-30) ug/ml Urine Barbiturates (Neg) Ur Phencyclidine (PCP) (Neg) U Amphetamin/Meth Scrn (Neg) MDMA (Ecstasy) Screen (Neg) U Benzodiazepines Scrn (Neg) Ur Cocaine Metabolite (Neg) U Marijuana (THC) Screen (Neg) Ethyl Alcohol mg/dL < 10.0 (<10.0) mg/dl Discharge Plan Visit Data Chief Complaint: Mental Health Evaluation Stated Complaint: SUICIDAL THOUGHTS ED Provider: Jeffry Swenson Discharge Problem: Suicidal ideation Patient Disposition: Still a Patient Condition: Good Forms Stand Alone Forms: My [facility], Suicide Prevention Resources Prescriptions Prescriptions: No Action clonazepam [Klonopin] 0.5 mg tablet 0.5 mg PO BID rizatriptan [Maxalt-COTTON PICKER] 10 mg tablet,disintegrating 10 mg PO UD PRN (Reason: Migraine Headache) loratadine [Claritin] 10 mg Tablet 10 mg PO DAILY ondansetron 4 mg tablet,disintegrating 4 mg PO DIRECTED PRN (Reason: NAUSEA/VOMITING) escitalopram oxalate 10 mg tablet 10 mg PO HS Medical Marijuana 1 dose inhalation DIRECTED PRN (Reason: PAIN, ANXIETY) multivitamin Tablet 1 tab PO DAILY clonidine HCl 0.1 mg tablet 0.1 mg PO HS mirtazapine 15 mg tablet 15 mg PO HS sulindac 200 mg tablet 200 mg PO BIDWMEAL Rx Instructions: take in morning and evening with meal rosuvastatin 40 mg tablet 40 mg PO QAM duloxetine 20 mg capsule,delayed release(DR/EC) 20 mg PO QAM Referrals Referrals: Neeta Flores DO [Primary Care Provider] -
[2022-10-11 13:08] LABS: Appearance Urine Clear (Clear); Bacteria Urine Automated Negative (Negative); Bilirubin Urine Negative (Negative); Blood Urine Negative (Negative); Color Urine Yellow; Epithelial Cell Urine Auto >30 /lpf (0-5); Glucose Urine UA Negative (Negative); Ketones Urine 1+ (Negative); Leukocyte Esterase Urine Negative (Negative); Nitrite Urine Negative (Negative); Protein Urine Trace (Negative); RBC Urine Automated 0-4 /hpf (0-4); Specific Gravity Urine 1.017 (1.000-1.030); Urobilinogen Urine Negative (Negative); pH Urine 6.5 (4.5-7.5)
[2022-10-11 13:08] LABS: Basophils # (auto) 0.03 K/uL (0-0.2); Basophils % (auto) 0.5 %; Eosinophils # (auto) 0.01 K/uL (0-0.50); Eosinophils % (auto) 0.2 %; Hematocrit (blood only) 36.6 % (34.1-44.9); Hemoglobin 12.8 g/dl (12.0-16.0); Immature Granulocytes # (auto) 0.01 K/uL (0.00-0.02); Immature Granulocytes % (auto) 0.2 %; Lymphocytes # (auto) 1.27 K/uL (1.2-3.4); Lymphocytes % (auto) 20.5 %; Mean Corpuscular Hemoglobin 32.1 pg (25.0-34.0); Mean Corpuscular Volume 91.7 fL (80.0-100.0); Mean Platelet Volume 10.4 fL (9.4-12.3); Monocytes # (auto) 0.43 K/uL (0.24-0.82); Monocytes % (auto) 6.9 %; Neutrophils # (auto) 4.46 K/uL (1.4-6.5); Neutrophils % (auto) 71.7 %; Platelet Count 205 K/uL (130-400); RDW Coefficient of Variation 12.7 % (11.5-14.5); RDW Standard Deviation 43.2 fL (36.4-46.3); Red Blood Count 3.99 M/uL (3.93-5.22); White Blood Count 6.21 K/ul (4.8-10.8)
[2022-10-11 13:33] LABS: Acetaminophen 3 ug/ml (10-30); Salicylate < 3.0 mg/dl (3.0-30)
[2022-10-11 13:36] LABS: Albumin Globulin Ratio 1.5 (0.9-2); Albumin Level 4.2 gm/dl (3.4-5.0); Bilirubin,Total 0.6 mg/dl (0.2-1.0); Creatinine Clr Calc Pharmacy 60.6 ml/min; Est GFR (African American) 76.1 ml/min; Est GFR (Non-African American) 65.6 ml/min; Globulin 2.8 gm/dl (2.5-4.0); Potassium 4.3 mmol/L (3.5-5.1)
[2022-10-11 13:38] LABS: Amphetamines+Metham, Urine Neg (Neg); Barbiturates, Urine Neg (Neg); Benzodiazepine, Urine Neg (Neg); Cocaine, Urine Neg (Neg); MDMA (Ecstacy), Urine Neg (Neg); Methadone, Urine Neg (Neg); Opiate, Urine Neg (Neg); Phencyclidine, Urine Neg (Neg)
[2022-10-11 14:18] LABS: Pregnancy Test, Serum Negative (Negative)
[2022-10-11] MEDS ORDERED: MAGNESIUM HYDROXIDE SUSP 30 ML UDC PO PRN (18:13)
[2022-10-11] MEDS ORDERED: ALUMINUM/MAGNESIUM SUSP 30 ML UDC PO PRN (18:13)
[2022-10-11] MEDS ORDERED: BISMUTH SUBSALICYLATE LIQD 236 ML PO PRN (18:13)
[2022-10-11] MEDS ORDERED: SODIUM CHLORIDE 0.65% NA SOLN 45 ML (OCEAN) PRN (18:13)
[2022-10-11] MEDS ORDERED: clonazePAM 0.5 MG TAB PO STA (20:01)
[2022-10-11] MEDS ORDERED: MIRTAZAPINE TAB 15 MG TAB PO ONE (20:04)
[2022-10-11] MEDS ORDERED: ESCITALOPRAM OXALATE 10 MG TAB PO ONE (20:05)
[2022-10-11] MEDS ORDERED: ROSUVASTATIN CALCIUM 20 MG TAB PO ONE (20:10)
[2022-10-12] MEDS: ACETAMINOPHEN 325 MG TAB PO PRN (06:41)
--- NOTE | 2022-10-12 08:22 | History & Physical ---
Date of Service October 12, 2022 Impression / Recommendations Impression The patient is a 51 year old woman with a history of depression and PTSD who was admitted for SI with plan. Diagnostically consistent with major depressive disorder, recurrent with anxiety and PTSD. The patient is deemed unstable and requires psychiatric hospitalization for diagnostic clarification, safety and stabilization, medication management and development of further coping skills. Discussed medication treatment options in detail including SSRIs, SNRIs, mirtazapine, clonidine, Klonopin. Discussed risks, benefits and alternatives. Patient would like to continue with mirtazapine, clonidine, Klonopin and consented to increase of Cymbalta for MDD/anxiety/off-label for PTSD and chronic pain. Reviewed side effects including but not limited to: GI, ROMAN, night sweats, sexual side effects with Cymbalta; low BP with clonidine; increased appetite/sedation with mirtazapine; additive potential/falls/avoiding use with alcohol with clonazepam. (1) Recurrent severe major depressive disorder with anxiety: (2) Post traumatic stress disorder (PTSD): Plan 10/12/22: The patient was admitted to the [facility] ([facility]) on q15 min checks (behavioral with suicide precautions) for safety. The patient will participate in group, recreational, and milieu therapies and will be offered additional individual and family sessions as clinically appropriate. -clonidine 0.1mg qhs for night sweats/PTSD sleep -Continue mirtazapine 15mg qhs -Contiue Klonopin 0.5mg BID prn for panic attacks -Increase Cymbalta to 40mg daily -Discontinue escitalopram Inventory Assets Strengths: supportive relationships, willing to get treatment, good rapport with her primary care provider Needs: safety and stabilization, medication adjustment, additional coping skills, increased outpatient services Suicide Risk Level Suicide Risk Level: High-Moderate (q15 min suicide checks) (High-Moderate due to severe depression with SI with plan prior to admission but feels safe in the hospital, able to safety contract and agrees to let nursing/staff know should they develop plan, intent or feel unable to remain safe. ) Risk Factors Assessment : Yes Do You Have Access To A Gun?: Yes (but willing to have the one unlocked gun secured so she won't have access) Mental Health Diagnoses: Yes Previous Attempt: Yes Family History of Suicide: No Previous Psychiatric Hospitalization: Yes Protective Factors Assessment Employed: No Stable Relationships: Yes Supportive Family: Yes Good Rapport with Provider: Yes Psychiatric History Identifying Data YASMANY BARRAGAN is a 51-year-old woman who currently lives in [place] with her boyfriend, has a history of depression and PTSD, and was admitted on 10/11/22 18:14 on a 201 voluntary commitment for SI with plan. Chief Complaint "I didn't feel able to stay safe at home". History of Present Illness She presents for psychiatric admission for worsening depression and SI with plan of crashing her car or shooting herself in the context of multiple psychosocial stressors including the upcoming holidays and this brings up memories of grief and missing her twin sister who 8 years ago and their shared birthday approaching in November. She describes worsening PTSD and notes "what I've been doing for the last 8 years hasn't been working" and notes she hasn't been able to get outpatient services "everywhere I call tells me no they aren't taking anyone". "That's why I'm here I couldn't get help anywhere else and I couldn't stay safe because of the SI". Recent worsening appetite, has usually only been eating dinner. Tends to have a lot of awakenings at night, struggles to stay comfortable due to hip/back/neck pain. Within the last 2 weeks the depression got very bad and then within the last 2 days the SI became intense to the point of "staying on my mind and thinking of how I could really actually do it and not fail". She also notes that her family is a strong deterrent noting "my family has experienced enough loss". Reviewed and confirmed recent history per ED psych CM note on 10/11/22: "Pt reports SI with a plan to drive her car off of a mayi and it that doesnt work then she states she would shoot herself. She does own a gun. She states that her twin sister from an OD 8 years ago and their birthday is coming up. She re ports she has struggled with severe depression since her sister and states I cant do it anymore. Pt is prescribed psychiatric medications by her PCP, Dr Flores. She has no psychiatric providers. She has a hx of one SA 10 years ago and was inpatient at [facility] at that time. She denies D&A use but uses medical marijuana. She is a smoker but reports that she stopped one week ago. Pt lives with her boyfriend. She is unemployed. She reports great difficulty sleeping and had a little to no appetite. She denies hallucinations, delusions and paranoia." Psychiatric ROS notable for no current nor history of symptoms of mellissa, psychosis, OCD nor eating disorder. Past Psychiatric History Current Psychiatric Diagnosis: Major Depression, PTSD Outpatient Services: none currently, 12 years ago did therapy while going through her divorce Previous Psych Admissions: [facility] in 2010 and maybe 1998 Do You Have Access To A Gun?: Yes (but willing to have the one unlocked gun secured so she won't have access) History of Previous Suicide Attempt: Yes (in 2010 leading to admission) Describe Attempts in the Past: was on [place], camping and not drinking enough/got confused and took meds Past Medication Trials: multiple Past Head Trauma/Neuro History History of Concussion/Seizure: No Allergies Allergy/AdvReac Type Severity Reaction Status Date / Time lamotrigine Allergy Mild RASH Verified 07/04/22 17:42 erythromycin base Allergy Unknown Unknown Verified 07/04/22 17:42 Macrolide Antibiotics Allergy Unknown ALLERGY TO Verified 07/04/22 17:42 ERYTHROMYCIN diphenhydramine AdvReac Intermediate restless Verified 07/04/22 17:42 legs lactose AdvReac Intermediate SJOGRENS Verified 07/04/22 17:42 SYNDROME hydroxyzine AdvReac Unknown RESTLESS Verified 07/04/22 17:42 LEGS Home Medications Medication Instructions Recorded Confirmed Type clonazepam 0.5 mg tablet (Klonopin) 0.5 mg PO BID 10/13/18 10/11/22 History loratadine 10 mg tablet (Claritin) 10 mg PO DAILY Seasonal Allergy 10/13/18 10/11/22 History rizatriptan 10 mg disintegrating 10 mg PO UD PRN Migraine Headache 10/13/18 10/11/22 History tablet (Maxalt-LINER REROLL TENDER) Medical Marijuana 1 dose inhalation DIRECTED PRN 08/02/21 10/11/22 History PAIN, ANXIETY escitalopram oxalate 10 mg tablet 10 mg PO HS 08/02/21 10/11/22 History ondansetron 4 mg disintegrating 4 mg PO DIRECTED PRN 08/02/21 10/11/22 History tablet NAUSEA/VOMITING multivitamin 1 tab PO DAILY 07/04/22 10/11/22 History clonidine HCl 0.1 mg tablet 0.1 mg PO HS 10/11/22 10/11/22 History duloxetine 20 mg capsule,delayed 20 mg PO QAM 10/11/22 10/11/22 History release mirtazapine 15 mg tablet 15 mg PO HS 10/11/22 10/11/22 History rosuvastatin 40 mg tablet 40 mg PO QAM 10/11/22 10/11/22 History sulindac 200 mg tablet 200 mg PO BIDWMEAL 10/11/22 10/11/22 History Family History Family History of: Alcoholism/Drug Abuse, Suicide Attempts (mother ) and Bipolar Family Mental Health History Comment: Twin sister had bipolar d/o and substance use Alcohol History Hx of Alcohol Use Over the Past 12 Months: No AUDIT Total Score: 0 hx of alcohol use years ago, ~9 years ago with DUI but no use in many years Smoking Use Have You Smoked or Used Tobacco Products in the Last 30 Days: Yes tobacco type: cigarettes Smoking Status: Former smoker (5 days without; tried Chantix but got nightmares ) Smoking packs per day: 0 Substance History Hx of Prescription Med Misuse Over the Past 12 Months: No Hx of Over the Counter Med Misuse Over the Past 12 Months: No Hx of Inhalent Misuse Over the Past 12 Months: No Hx of Organic Substance Use Over the Past 12 Months: Yes (medical marijuana) Hx of Illegal Substances/Street Drug Use Over Past 12 Months: No Problems as a Result of Past Substance Use: None Identified vape cannabis for medical use for chronic pain and helps with sleep Personal History Living Arrangements: Home Childhood: Grew up in [place]. Parents are and she is very close with them. Her twin sister, Letitia, about 8 years ago. Has older brother and older sister. Not as close with her siblings. Highest Grade Completed: High School Graduate Employment Status: Unemployed (has applied for disability ) Marital Status: Living w/ Signif. Other (hx divorce ) Number Of Children: daughter age 30, granddaughter age 3 Beliefs That Will Affect Care: None Current Legal Problems: No Hx Legal Problems: No Hx Traumatic Life Events: Yes Patient History Medical History Acute cholecystitis Cholelithiasis Depressed mood History of Sjogren's disease Lactose intolerance Lymphadenitis Surgical History No significant past surgical history Social History Smoking Status: Former smoker (5 days without; tried Chantix but got nightmares ) Tobacco Type: Cigarettes Hx Alcohol Use: No Hx Substance Use: No Preferred Language: Greenlandic Communication Ability: Effective 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 Beliefs That Will Affect Care: None marital status: Single Current Living Situation: Significant Other current occupational status: employed Feels Safe at Home: Yes Assistive Devices: Glasses Review of Systems Review of Systems: All systems reviewed & are unremarkable except as noted in HPI & below (chronic neck pain ) Physical Exam Psychiatric: Orientation: alert and oriented x 3 Apperance: appropriately dressed and appropriately groomed Eye Contact: good eye contact Motor Behavior: no abnormal motor movements Speech: normal rate/rhythm/volume of speech Affect: + depressed affect and + anxious affect Mood: + depressed mood and + anxious mood Thought Process: goal directed thought process Thought Content: reality based without delusions Suicidal Thoughts: denies suicidal plan and denies suicidal intent; + reports suicidal thoughts (intermittent thoughts ) Homicidal Thoughts: denies homicidal thoughts Hallucinations: no auditory hallucinations and no visual hallucinations Cognition: recent memory grossly intact, remote memory grossly intact, attention grossly intact and language grossly intact Estimated Intelligence: consistent with education level Insight: + fair insight Judgement: + fair judgement Vital Signs (Past 24 Hours): Last Vital Signs Temp 36.8 C 10/12/22 06:39 Pulse 55 L 10/12/22 06:40 Resp 16 10/12/22 06:39 BP 112/74 10/12/22 06:40 Pulse Ox 97 10/11/22 17:25 O2 Del Method 10/11/22 17:25 Exam Statement: A physical exam was performed in the ED by Dr. Swenson for the purposes of medical clearance. I accept that physical as correct and adequate for the purposes of the inpatient physical exam. Results & Data ([facility]) Laboratory Results Laboratory Results - last 24 hr 10/11/22 10/11/22 10/11/22 12:27 12:27 12:27 WBC RBC Hgb Hct MCV MCH MCHC RDW Std Deviation RDW Coeff of Angel Plt Count MPV Immature Gran % (Auto) Neut % (Auto) Lymph % (Auto) [place] % (Auto) Eos % (Auto) Baso % (Auto) Neut # (Auto) Lymph # (Auto) [place] # (Auto) Eos # (Auto) Baso # (Auto) Immature Gran # (Auto) Sodium Potassium Chloride Carbon Dioxide Anion Gap BUN Creatinine Est Cr Clr Drug Dosing Est GFR ( Amer) Est GFR (Non-Af Amer) BUN/Creatinine Ratio Glucose Calcium Total Bilirubin AST ALT Alkaline Phosphatase Total Protein Albumin Globulin Albumin/Globulin Ratio TSH HCG, Qual Urine Color Yellow Urine Appearance Clear Urine pH 6.5 Ur Specific [place] 1.017 Urine Protein Trace H Urine Glucose (UA) Negative Urine Ketones 1+ H Urine Blood Negative Urine Nitrite Negative Urine Bilirubin Negative Urine Urobilinogen Negative Ur Leukocyte Esterase Negative Urine WBC (Auto) 1-5 Urine RBC (Auto) 0-4 U Hyaline Cast (Auto) 1-5 U Epithel Cells (Auto) >30 H Urine Bacteria (Auto) Negative Salicylates Urine Opiates Screen Neg Ur Methadone, Qual Neg Acetaminophen Urine Barbiturates Neg Ur Phencyclidine (PCP) Neg U Amphetamin/Meth Scrn Neg MDMA (Ecstasy) Screen Neg U Benzodiazepines Scrn Neg Ur Cocaine Metabolite Neg U Marijuana (THC) Screen Pos H U Marijuana THC Carboxy Pending Drug Screen Comment Pending Ethyl Alcohol mg/dL SARS-CoV-2, RNA, NAAT 10/11/22 10/11/22 10/11/22 12:30 12:45 12:45 WBC 6.21 RBC 3.99 Hgb 12.8 Hct 36.6 MCV 91.7 MCH 32.1 MCHC 35.0 RDW Std Deviation 43.2 RDW Coeff of Angel 12.7 Plt Count 205 MPV 10.4 Immature Gran % (Auto) 0.2 Neut % (Auto) 71.7 Lymph % (Auto) 20.5 [place] % (Auto) 6.9 Eos % (Auto) 0.2 Baso % (Auto) 0.5 Neut # (Auto) 4.46 Lymph # (Auto) 1.27 [place] # (Auto) 0.43 Eos # (Auto) 0.01 Baso # (Auto) 0.03 Immature Gran # (Auto) 0.01 Sodium 139 Potassium 4.3 Chloride 109 H Carbon Dioxide 23 Anion Gap 7 BUN 18 Creatinine 1.00 Est Cr Clr Drug Dosing 60.6 Est GFR ( Amer) 76.1 Est GFR (Non-Af Amer) 65.6 BUN/Creatinine Ratio 18.0 Glucose 87 Calcium 9.0 Total Bilirubin 0.6 AST 21 ALT 16 Alkaline Phosphatase 39 Total Protein 7.0 Albumin 4.2 Globulin 2.8 Albumin/Globulin Ratio 1.5 TSH HCG, Qual Urine Color Urine Appearance Urine pH Ur Specific [place] Urine Protein Urine Glucose (UA) Urine Ketones Urine Blood Urine Nitrite Urine Bilirubin Urine Urobilinogen Ur Leukocyte Esterase Urine WBC (Auto) Urine RBC (Auto) U Hyaline Cast (Auto) U Epithel Cells (Auto) Urine Bacteria (Auto) Salicylates Urine Opiates Screen Ur Methadone, Qual Acetaminophen Urine Barbiturates Ur Phencyclidine (PCP) U Amphetamin/Meth Scrn MDMA (Ecstasy) Screen U Benzodiazepines Scrn Ur Cocaine Metabolite U Marijuana (THC) Screen U Marijuana THC Carboxy Drug Screen Comment Ethyl Alcohol mg/dL SARS-CoV-2, RNA, NAAT NEGATIVE 10/11/22 10/11/22 10/11/22 12:45 12:45 12:45 WBC RBC Hgb Hct MCV MCH MCHC RDW Std Deviation RDW Coeff of Angel Plt Count MPV Immature Gran % (Auto) Neut % (Auto) Lymph % (Auto) [place] % (Auto) Eos % (Auto) Baso % (Auto) Neut # (Auto) Lymph # (Auto) [place] # (Auto) Eos # (Auto) Baso # (Auto) Immature Gran # (Auto) Sodium Potassium Chloride Carbon Dioxide Anion Gap BUN Creatinine Est Cr Clr Drug Dosing Est GFR ( Amer) Est GFR (Non-Af Amer) BUN/Creatinine Ratio Glucose Calcium Total Bilirubin AST ALT Alkaline Phosphatase Total Protein Albumin Globulin Albumin/Globulin Ratio TSH 0.901 HCG, Qual Urine Color Urine Appearance Urine pH Ur Specific [place] Urine Protein Urine Glucose (UA) Urine Ketones Urine Blood Urine Nitrite Urine Bilirubin Urine Urobilinogen Ur Leukocyte Esterase Urine WBC (Auto) Urine RBC (Auto) U Hyaline Cast (Auto) U Epithel Cells (Auto) Urine Bacteria (Auto) Salicylates < 3.0 L Urine Opiates Screen Ur Methadone, Qual Acetaminophen 3 L Urine Barbiturates Ur Phencyclidine (PCP) U Amphetamin/Meth Scrn MDMA (Ecstasy) Screen U Benzodiazepines Scrn Ur Cocaine Metabolite U Marijuana (THC) Screen U Marijuana THC Carboxy Drug Screen Comment Ethyl Alcohol mg/dL < 10.0 SARS-CoV-2, RNA, NAAT 10/11/22 12:45 WBC RBC Hgb Hct MCV MCH MCHC RDW Std Deviation RDW Coeff of Angel Plt Count MPV Immature Gran % (Auto) Neut % (Auto) Lymph % (Auto) [place] % (Auto) Eos % (Auto) Baso % (Auto) Neut # (Auto) Lymph # (Auto) [place] # (Auto) Eos # (Auto) Baso # (Auto) Immature Gran # (Auto) Sodium Potassium Chloride Carbon Dioxide Anion Gap BUN Creatinine Est Cr Clr Drug Dosing Est GFR ( Amer) Est GFR (Non-Af Amer) BUN/Creatinine Ratio Glucose Calcium Total Bilirubin AST ALT Alkaline Phosphatase Total Protein Albumin Globulin Albumin/Globulin Ratio TSH HCG, Qual Negative Urine Color Urine Appearance Urine pH Ur Specific [place] Urine Protein Urine Glucose (UA) Urine Ketones Urine Blood Urine Nitrite Urine Bilirubin Urine Urobilinogen Ur Leukocyte Esterase Urine WBC (Auto) Urine RBC (Auto) U Hyaline Cast (Auto) U Epithel Cells (Auto) Urine Bacteria (Auto) Salicylates Urine Opiates Screen Ur Methadone, Qual Acetaminophen Urine Barbiturates Ur Phencyclidine (PCP) U Amphetamin/Meth Scrn MDMA (Ecstasy) Screen U Benzodiazepines Scrn Ur Cocaine Metabolite U Marijuana (THC) Screen U Marijuana THC Carboxy Drug Screen Comment Ethyl Alcohol mg/dL SARS-CoV-2, RNA, NAAT Current Inpatient Medications Current Inpatient Medications: Current Inpatient Medications Acetaminophen (Acetaminophen 325 Mg Tab) 650 mg PO Q4H PRN PRN Reason: Headache or Minor Fever Stop: 11/10/22 18:12 Last Admin: 10/12/22 06:41 Dose: 650 mg Al Hydrox/Mg Hydrox/Simethicone (Aluminum/Magnesium Susp 30 Ml Udc) 30 ml PO Q4H PRN PRN Reason: GI Upset Stop: 11/10/22 18:12 Bismuth Subsalicylate (Bismuth Subsalicylate Liqd 236 Ml) 15 ml PO PRN PRN PRN Reason: Loose Stool Stop: 11/10/22 18:12 Magnesium Hydroxide (Magnesium Hydroxide Susp 30 Ml Udc) 30 ml PO DAILY PRN PRN Reason: Constipation Stop: 11/10/22 18:12 Sodium Chloride (Sodium Chloride 0.65% Na Soln 45 Ml ([place])) 1 - 2 sprays NA PRN PRN PRN Reason: Nasal Dryness/Congestion Stop: 11/10/22 18:12
[2022-10-12] MEDS ORDERED: clonazePAM 0.5 MG TAB PO PRN (11:26)
[2022-10-12] MEDS ORDERED: ONDANSETRON 4 MG OD TAB PO PRN (11:31)
[2022-10-12] MEDS ORDERED: SUMAtriptan succinate 25 MG TAB PO PRN (11:32)
[2022-10-12] MEDS: MULTIVITAMIN TAB PO SCH (12:37)
[2022-10-12] MEDS: LORATADINE 10 MG TAB PO SCH (12:37)
[2022-10-12] MEDS: DULoxetine HCL 20 MG CAP PO SCH (12:37)
[2022-10-12] MEDS: SULINDAC 200 MG TAB PO SCH (17:47)
[2022-10-12] MEDS: ROSUVASTATIN CALCIUM 20 MG TAB PO SCH (21:49)
[2022-10-12] MEDS: cloNIDine HCL 0.1 MG TAB PO SCH (21:50)
[2022-10-12] MEDS ORDERED: MIRTAZAPINE TAB 15 MG TAB PO SCH (22:00)
[2022-10-13] MEDS ORDERED: DULoxetine HCL 20 MG CAP PO SCH (09:00)
[2022-10-13] MEDS: LORATADINE 10 MG TAB PO SCH (09:08)
[2022-10-13] MEDS: SULINDAC 200 MG TAB PO SCH ×2 (09:08→17:44)
[2022-10-13] MEDS: DULoxetine HCL 20 MG CAP PO SCH (09:08)
[2022-10-13] MEDS: ACETAMINOPHEN 325 MG TAB PO PRN (11:35)
[2022-10-13] MEDS: MULTIVITAMIN TAB PO SCH (13:04)
--- NOTE | 2022-10-13 14:25 | Psychiatric Progress Note ---
Date of Service October 13, 2022 Impression / Recommendations Impression The patient is a 51 year old woman with a history of depression and PTSD who was admitted for SI with plan. Diagnostically consistent with major depressive disorder, recurrent with anxiety and PTSD. The patient is deemed unstable and requires psychiatric hospitalization for diagnostic clarification, safety and stabilization, medication management and development of further coping skills. 10/13/22: Ongoing depression and PTSD but improving steadily. Significant insomnia. Agrees to decrease Klonopin and wants to increase mirtazapine to further target insomnia and low appetite. (1) Recurrent severe major depressive disorder with anxiety: (2) Post traumatic stress disorder (PTSD): Plan 10/13/22: Decrease Klonopin to 0.5mg daily prn. Increase mirtazapine to 30mg qhs. 10/12/22: The patient was admitted to the [facility] ([facility]) on q15 min checks (behavioral with suicide precautions) for safety. The patient will participate in group, recreational, and milieu therapies and will be offered additional individual and family sessions as clinically appropriate. -clonidine 0.1mg qhs for night sweats/PTSD sleep -Continue mirtazapine 15mg qhs -Continue Klonopin 0.5mg BID prn for panic attacks -Increase Cymbalta to 40mg daily -Discontinue escitalopram Inventory Assets Strengths: supportive relationships, willing to get treatment, good rapport with her primary care provider Needs: safety and stabilization, medication adjustment, additional coping skills, increased outpatient services Suicide Risk Level Suicide Risk Level: Moderate (q15 min suicide checks) (severe depression with SI with plan prior to admission but mood starting to improve, feels safe in the hospital, able to safety contract and agrees to let nursing/staff know should they develop plan, intent or feel unable to remain safe. ) Risk Factors Assessment : Yes Do You Have Access To A Gun?: Yes (but willing to have the one unlocked gun secured so she won't have access) Mental Health Diagnoses: Yes Previous Attempt: Yes Family History of Suicide: No Previous Psychiatric Hospitalization: Yes Protective Factors Assessment Employed: No Stable Relationships: Yes Supportive Family: Yes Good Rapport with Provider: Yes Interval History Identifying Information YASMANY BARRAGAN is a 51-year-old woman who currently lives in [place] with her boyfriend, has a history of depression and PTSD, and was admitted on 10/11/22 18:14 on a 201 voluntary commitment for SI with plan. Chief Complaint "I'm getting a lot out of this admission, the groups are so helpful". Review of Systems Sleep Information Total Hours of Sleep: 4.5 Sleep Comments: Received Klonopin for anxiety at 2326 Meal Information Percent Meal Consumed - Breakfast: 100 Percent Meal Consumed - Lunch: 100 Percent Meal Consumed - Dinner: 95 Subjective Subjective Patient was seen & assessed and interval progress reviewed with treatment team nursing and social work. Attending groups. Expresses helpfulness of groups for examining cognitive distortions and ways she has allowed herself to become alienated from her family. Denies SI today. Focusing more on future like wanting to be there for her twin's children and grandnieces and grandnephews as she rarely sees them due to grief it brought up. Struggled with insomnia last night, still with low appetite. Some palm sweating but denies any other side effects from higher dose of Cymbalta. Physical Exam Psychiatric Orientation: alert and oriented x 3 Apperance: appropriately dressed and appropriately groomed Eye Contact: good eye contact Motor Behavior: no abnormal motor movements Speech: normal rate/rhythm/volume of speech Affect: + depressed affect, + anxious affect and + tearful affect Mood: + depressed mood and + anxious mood Thought Process: goal directed thought process Thought Content: reality based without delusions Suicidal Thoughts: denies suicidal thoughts, denies suicidal plan and denies suicidal intent Homicidal Thoughts: denies homicidal thoughts Hallucinations: no auditory hallucinations and no visual hallucinations Cognition: recent memory grossly intact, remote memory grossly intact, attention grossly intact and language grossly intact Estimated Intelligence: consistent with education level Insight: + fair insight Judgement: + fair judgement Vital Signs (Past 24 Hours) Last Vital Signs Temp 36.6 C 10/13/22 06:37 Pulse 60 10/13/22 06:38 Resp 16 10/13/22 06:37 BP 98/61 L 10/13/22 06:38 Pulse Ox 96 10/12/22 21:47 O2 Del Method 10/12/22 21:47 Results & Data ([facility]) Current Inpatient Medications Current Inpatient Medications: Current Inpatient Medications Acetaminophen (Acetaminophen 325 Mg Tab) 650 mg PO Q4H PRN PRN Reason: Headache or Minor Fever Stop: 11/10/22 18:12 Last Admin: 10/13/22 11:35 Dose: 650 mg Al Hydrox/Mg Hydrox/Simethicone (Aluminum/Magnesium Susp 30 Ml Udc) 30 ml PO Q4H PRN PRN Reason: GI Upset Stop: 11/10/22 18:12 Bismuth Subsalicylate (Bismuth Subsalicylate Liqd 236 Ml) 15 ml PO PRN PRN PRN Reason: Loose Stool Stop: 11/10/22 18:12 Clonazepam (Clonazepam 0.5 Mg Tab) 0.5 mg PO BID PRN PRN Reason: Anxiety/Panic Attacks Stop: 11/11/22 11:44 Last Admin: 10/12/22 22:36 Dose: 0.5 mg Clonidine HCl (Clonidine Hcl 0.1 Mg Tab) 0.1 mg PO HS MOHIT Stop: 11/11/22 21:59 Last Admin: 10/12/22 21:50 Dose: 0.1 mg Duloxetine HCl (Duloxetine Hcl 20 Mg Cap) 40 mg PO QAM MOHIT Stop: 11/11/22 11:59 Last Admin: 10/13/22 09:08 Dose: 40 mg Loratadine (Loratadine 10 Mg Tab) 10 mg PO DAILY MOHIT Stop: 11/11/22 11:44 Last Admin: 10/13/22 09:08 Dose: 10 mg Magnesium Hydroxide (Magnesium Hydroxide Susp 30 Ml Udc) 30 ml PO DAILY PRN PRN Reason: Constipation Stop: 11/10/22 18:12 Mirtazapine (Mirtazapine Tab 15 Mg Tab) 15 mg PO HS MOHIT Stop: 11/11/22 21:59 Last Admin: 10/12/22 21:50 Dose: 15 mg Multivitamins (Multivitamin Tab) 1 tab PO Q24H MOHIT Stop: 11/11/22 11:59 Last Admin: 10/13/22 13:04 Dose: 1 tab Ondansetron HCl (Ondansetron 4 Mg Od Tab) 4 mg PO Q8H PRN PRN Reason: NAUSEA/VOMITING with migraine Stop: 11/11/22 11:30 Last Admin: 10/12/22 21:23 Dose: 4 mg Rosuvastatin Calcium (Rosuvastatin Calcium 20 Mg Tab) 40 mg PO HS MOHIT Stop: 11/11/22 21:59 Last Admin: 10/12/22 21:49 Dose: 40 mg Sodium Chloride (Sodium Chloride 0.65% Na Soln 45 Ml ([place])) 1 - 2 sprays NA PRN PRN PRN Reason: Nasal Dryness/Congestion Stop: 11/10/22 18:12 Sulindac (Sulindac 200 Mg Tab) 200 mg PO BIDM MOHIT Stop: 11/11/22 17:44 Last Admin: 10/13/22 09:08 Dose: 200 mg Sumatriptan Succinate (Sumatriptan Succinate 25 Mg Tab) 25 mg PO DAILY PRN PRN Reason: Migraine Headache Stop: 11/11/22 11:31 Mental Health & Subst Abuse Tx Psychiatrist Name of Psychiatrist: [facility] Psychiatrist's Date of Appointment with Psychiatrist: 11/06/22 Time of Appointment with Psychiatrist: 11:00am Therapist Name of Therapist: [facility] Therapist's Date of Therapist Appointment: 10/22/22 Time of Therapist Appointment: 11:30am 3D Artist Name of 3D Artist: None Post Discharge Appointments Primary Care Physician Name Of Family Doctor: Dr Flores/Dr Singh Primary [facility] Date of Appointment with PCP: 10/23/22 Time of Appointment with PCP: 12:45pm Contact Information Discharge Discharge Address: [address] [place] [address] [place] [id number]
[2022-10-13] MEDS ORDERED: clonazePAM 0.5 MG TAB PO PRN (16:31)
[2022-10-13] MEDS: ROSUVASTATIN CALCIUM 20 MG TAB PO SCH (21:49)
[2022-10-13] MEDS: cloNIDine HCL 0.1 MG TAB PO SCH (21:50)
[2022-10-13] MEDS ORDERED: MIRTAZAPINE TAB 15 MG TAB PO SCH (22:00)
[2022-10-14 06:58] LABS: Marijuana Quant, GCMS Urine 1911 ng/mL (<5)
[2022-10-14] MEDS: DULoxetine HCL 20 MG CAP PO SCH (08:33)
[2022-10-14] MEDS: LORATADINE 10 MG TAB PO SCH (08:34)
[2022-10-14] MEDS: SULINDAC 200 MG TAB PO SCH (08:34)
[2022-10-14] MEDS: ACETAMINOPHEN 325 MG TAB PO PRN (10:33)
--- NOTE | 2022-10-14 13:08 | Discharge Summary ---
Date of Service October 14, 2022 History of Present Illness She presents for psychiatric admission for worsening depression and SI with plan of crashing her car or shooting herself in the context of multiple psychosocial stressors including the upcoming holidays and this brings up memories of grief and missing her twin sister who 8 years ago and their shared birthday approaching in November. She describes worsening PTSD and notes "what I've been doing for the last 8 years hasn't been working" and notes she hasn't been able to get outpatient services "everywhere I call tells me no they aren't taking anyone". "That's why I'm here I couldn't get help anywhere else and I couldn't stay safe because of the SI". Recent worsening appetite, has usually only been eating dinner. Tends to have a lot of awakenings at night, struggles to stay comfortable due to hip/back/neck pain. Within the last 2 weeks the depression got very bad and then within the last 2 days the SI became intense to the point of "staying on my mind and thinking of how I could really actually do it and not fail". She also notes that her family is a strong deterrent noting "my family has experienced enough loss". Reviewed and confirmed recent history per ED psych CM note on 10/11/22: "Pt reports SI with a plan to drive her car off of a mayi and it that doesnt work then she states she would shoot herself. She does own a gun. She states that her twin sister from an OD 8 years ago and their birthday is coming up. She reports she has struggled with severe depression since her sister and states I cant do it anymore. Pt is prescribed psychiatric medications by her PCP, Dr Flores. She has no psychiatric providers. She has a hx of one SA 10 years ago and was inpatient at [facility] at that time. She denies D&A use but uses medical marijuana. She is a smoker but reports that she stopped one week ago. Pt lives with her boyfriend. She is unemployed. She reports great difficulty sleeping and had a little to no appetite. She denies hallucinations, delusions and paranoia." Psychiatric ROS notable for no current nor history of symptoms of mellissa, psychosis, OCD nor eating disorder. Physical Exam Vital Signs (Past 24 Hours) Last Vital Signs Temp 36.6 C 11/20/22 06:31 Pulse 67 10/14/22 06:32 Resp 16 10/14/22 06:31 BP 107/66 10/14/22 06:32 Pulse Ox 96 10/12/22 21:47 O2 Del Method 10/12/22 21:47 See admission H&P and DOD summary. Principal Diagnosis Major Depressive Disorder, Post Traumatic Stress Disorder Psychiatric Data See daily stay summary. In short, patient was engaged with the social/therapeutic milieu of the unit, safety was maintained and the patient was cooperative with care. Medication changes included discontinuation of escitalopram, increase of Cymbalta to 40mg daily and increase of mirtazapine to 30mg hs and they tolerated this well. A family session was held and safety plan was completed prior to discharge. She actively and insightfully participated in safety planning and in discussions about ways to seek support and recognizing warning signs and utilizing coping skills. Reviewed mobile apps that could be used for additional ways to have their safety plan and contacts easily available should thoughts of SI re-emerge in the future. Reviewed importance of seeking emergency care should SI intensify, worsen or should they feel unsafe in the future which they agree to do. She found the groups very helpful and found that a cognitive shift related to processing her grief from her twin sister's was extremely powerful after having a mindset shift noting "before I felt like I was living without my sister and now I'm going to focus on how to live for her". On the day of discharge she stated her mood was "great" and remained future-oriented including spending time with family, hosting a Thanksgiving celebration, seeing her granddaughter, seeing her cats, upcoming disability appointment and engaging in aftercare appointments for psychiatry and therapy. Day of Discharge Assessment Today the patient voices readiness for discharge. They note improvement in mood and anxiety. They deny thoughts of harm to self or others. Thoughts are org anized and they are clinically improved from admission. There is no evidence of psychosis. They improved in the hospital with support and medication adjustments. They agree to take medications as prescribed and keep follow-up appointments. At the time of the discharge they are deemed to be stable and appropriate for outpatient level of care. They are not deemed to be at imminent risk of harm to self or others. They are aware of emergency and crisis services. Knows to call 911 or go to nearest emergency care center if in a crisis which cannot be handled as an outpatient. Transition of Care Transition Of Care Record: was reviewed with the patient Advance Directives Advance Directives Information Provided: Yes Advance Directives: No Mental Health Advance Directive: No Advance Directives on File: No Living Will: No Power of Mortar Mixer Operator: No Advance Directives Reason:: Declines as Mental Health Visit. Suicide Risk Level Suicide Risk Level Comments: Acute risk is low given improvement in mood and denial of SI, lack of access to lethal means (partner has secured the guns in the home including the revolver), improvement in sleep and hopefulness. Chronic risk is low to moderate given some non-modifiable risk factors including psychiatric co-morbid diagnoses, prior attempt, emotional reactivity, chronic illness, prior psychiatric hospitalizations but also with many protective factors including supportive family, supportive partner, good problem solving skills, high capacity to establish therapeutic alliance, outpatient care now in place and helps with her young grandchildren. Counseled on ways to reduce acute and chronic risk including engaging with outpatient providers, using safety plan if needed, utilizing supports, taking medication, and using coping skills. Modifiable risk factors of SI, grief, trauma symptoms and depression were addressed during hospitalization through development of new coping skills, family meeting, safety planning, and medication adjustments. Risk Factors Assessment : Yes Do You Have Access To A Gun?: No (guns all secured) Mental Health Diagnoses: Yes Previous Attempt: Yes Family History of Suicide: No Previous Psychiatric Hospitalization: Yes Hopelessness: No Protective Factors Assessment Responsible for Young Children: Yes Employed: No Stable Relationships: Yes Supportive Family: Yes Good Rapport with Provider: Yes Discharge Data Lab Results 10/11/22 10/11/22 10/11/22 12:27 12:27 12:27 WBC RBC Hgb Hct MCV MCH MCHC RDW Std Deviation RDW Coeff of Angel Plt Count MPV Immature Gran % (Auto) Neut % (Auto) Lymph % (Auto) Colbert % (Auto) Eos % (Auto) Baso % (Auto) Neut # (Auto) Lymph # (Auto) Colbert # (Auto) Eos # (Auto) Baso # (Auto) Immature Gran # (Auto) Sodium Potassium Chloride Carbon Dioxide Anion Gap BUN Creatinine Est Cr Clr Drug Dosing Est GFR ( Amer) Est GFR (Non-Af Amer) BUN/Creatinine Ratio Glucose Calcium Total Bilirubin AST ALT Alkaline Phosphatase Total Protein Albumin Globulin Albumin/Globulin Ratio TSH HCG, Qual Urine Color Yellow Urine Appearance Clear Urine pH 6.5 Ur Specific [place] 1.017 Urine Protein Trace H Urine Glucose (UA) Negative Urine Ketones 1+ H Urine Blood Negative Urine Nitrite Negative Urine Bilirubin Negative Urine Urobilinogen Negative Ur Leukocyte Esterase Negative Urine WBC (Auto) 1-5 Urine RBC (Auto) 0-4 U Hyaline Cast (Auto) 1-5 U Epithel Cells (Auto) >30 H Urine Bacteria (Auto) Negative Salicylates Urine Opiates Screen Neg Ur Methadone, Qual Neg Acetaminophen Urine Barbiturates Neg Ur Phencyclidine (PCP) Neg U Amphetamin/Meth Scrn Neg MDMA (Ecstasy) Screen Neg U Benzodiazepines Scrn Neg Ur Cocaine Metabolite Neg U Marijuana (THC) Screen Pos H U Marijuana THC Carboxy 1911 H Drug Screen Comment SEE NOTE Ethyl Alcohol mg/dL SARS-CoV-2, RNA, NAAT 10/11/22 10/11/22 10/11/22 12:30 12:45 12:45 WBC 6.21 RBC 3.99 Hgb 12.8 Hct 36.6 MCV 91.7 MCH 32.1 MCHC 35.0 RDW Std Deviation 43.2 RDW Coeff of Angel 12.7 Plt Count 205 MPV 10.4 Immature Gran % (Auto) 0.2 Neut % (Auto) 71.7 Lymph % (Auto) 20.5 Colbert % (Auto) 6.9 Eos % (Auto) 0.2 Baso % (Auto) 0.5 Neut # (Auto) 4.46 Lymph # (Auto) 1.27 Colbert # (Auto) 0.43 Eos # (Auto) 0.01 Baso # (Auto) 0.03 Immature Gran # (Auto) 0.01 Sodium 139 Potassium 4.3 Chloride 109 H Carbon Dioxide 23 Anion Gap 7 BUN 18 Creatinine 1.00 Est Cr Clr Drug Dosing 60.6 Est GFR ( Amer) 76.1 Est GFR (Non-Af Amer) 65.6 BUN/Creatinine Ratio 18.0 Glucose 87 Calcium 9.0 Total Bilirubin 0.6 AST 21 ALT 16 Alkaline Phosphatase 39 Total Protein 7.0 Albumin 4.2 Globulin 2.8 Albumin/Globulin Ratio 1.5 TSH HCG, Qual Urine Color Urine Appearance Urine pH Ur Specific [place] Urine Protein Urine Glucose (UA) Urine Ketones Urine Blood Urine Nitrite Urine Bilirubin Urine Urobilinogen Ur Leukocyte Esterase Urine WBC (Auto) Urine RBC (Auto) U Hyaline Cast (Auto) U Epithel Cells (Auto) Urine Bacteria (Auto) Salicylates Urine Opiates Screen Ur Methadone, Qual Acetaminophen Urine Barbiturates Ur Phencyclidine (PCP) U Amphetamin/Meth Scrn MDMA (Ecstasy) Screen U Benzodiazepines Scrn Ur Cocaine Metabolite U Marijuana (THC) Screen U Marijuana THC Carboxy Drug Screen Comment Ethyl Alcohol mg/dL SARS-CoV-2, RNA, NAAT NEGATIVE 10/11/22 10/11/22 10/11/22 12:45 12:45 12:45 WBC RBC Hgb Hct MCV MCH MCHC RDW Std Deviation RDW Coeff of Angel Plt Count MPV Immature Gran % (Auto) Neut % (Auto) Lymph % (Auto) Colbert % (Auto) Eos % (Auto) Baso % (Auto) Neut # (Auto) Lymph # (Auto) Colbert # (Auto) Eos # (Auto) Baso # (Auto) Immature Gran # (Auto) Sodium Potassium Chloride Carbon Dioxide Anion Gap BUN Creatinine Est Cr Clr Drug Dosing Est GFR ( Amer) Est GFR (Non-Af Amer) BUN/Creatinine Ratio Glucose Calcium Total Bilirubin AST ALT Alkaline Phosphatase Total Protein Albumin Globulin Albumin/Globulin Ratio TSH 0.901 HCG, Qual Urine Color Urine Appearance Urine pH Ur Specific [place] Urine Protein Urine Glucose (UA) Urine Ketones Urine Blood Urine Nitrite Urine Bilirubin Urine Urobilinogen Ur Leukocyte Esterase Urine WBC (Auto) Urine RBC (Auto) U Hyaline Cast (Auto) U Epithel Cells (Auto) Urine Bacteria (Auto) Salicylates < 3.0 L Urine Opiates Screen Ur Methadone, Qual Acetaminophen 3 L Urine Barbiturates Ur Phencyclidine (PCP) U Amphetamin/Meth Scrn MDMA (Ecstasy) Screen U Benzodiazepines Scrn Ur Cocaine Metabolite U Marijuana (THC) Screen U Marijuana THC Carboxy Drug Screen Comment Ethyl Alcohol mg/dL < 10.0 SARS-CoV-2, RNA, NAAT 10/11/22 12:45 WBC RBC Hgb Hct MCV MCH MCHC RDW Std Deviation RDW Coeff of Angel Plt Count MPV Immature Gran % (Auto) Neut % (Auto) Lymph % (Auto) Colbert % (Auto) Eos % (Auto) Baso % (Auto) Neut # (Auto) Lymph # (Auto) Colbert # (Auto) Eos # (Auto) Baso # (Auto) Immature Gran # (Auto) Sodium Potassium Chloride Carbon Dioxide Anion Gap BUN Creatinine Est Cr Clr Drug Dosing Est GFR ( Amer) Est GFR (Non-Af Amer) BUN/Creatinine Ratio Glucose Calcium Total Bilirubin AST ALT Alkaline Phosphatase Total Protein Albumin Globulin Albumin/Globulin Ratio TSH HCG, Qual Negative Urine Color Urine Appearance Urine pH Ur Specific [place] Urine Protein Urine Glucose (UA) Urine Ketones Urine Blood Urine Nitrite Urine Bilirubin Urine Urobilinogen Ur Leukocyte Esterase Urine WBC (Auto) Urine RBC (Auto) U Hyaline Cast (Auto) U Epithel Cells (Auto) Urine Bacteria (Auto) Salicylates Urine Opiates Screen Ur Methadone, Qual Acetaminophen Urine Barbiturates Ur Phencyclidine (PCP) U Amphetamin/Meth Scrn MDMA (Ecstasy) Screen U Benzodiazepines Scrn Ur Cocaine Metabolite U Marijuana (THC) Screen U Marijuana THC Carboxy Drug Screen Comment Ethyl Alcohol mg/dL SARS-CoV-2, RNA, NAAT Hospital Course (1) Recurrent severe major depressive disorder with anxiety: (2) Post traumatic stress disorder (PTSD): (3) Complicated bereavement: Plan 10/14/22: Tolerating medications well and mood improved. Appetite significantly improved. 10/13/22: Decrease Klonopin to 0.5mg daily prn. Increase mirtazapine to 30mg qhs. 10/12/22: The patient was admitted to the [facility] ([facility] mental health unit) on q15 min checks (behavioral with suicide precautions) for safety. The patient will participate in group, recreational, and milieu therapies and will be offered additional individual and family sessions as clinically appropriate. -clonidine 0.1mg qhs for night sweats/PTSD sleep -Continue mirtazapine 15mg qhs -Continue Klonopin 0.5mg BID prn for panic attacks -Increase Cymbalta to 40mg daily -Discontinue escitalopram Mental Health & Subst Abuse Tx Psychiatrist Name of Psychiatrist: [facility] Holden Psychiatrist's Date of Appointment with Psychiatrist: 11/06/22 Time of Appointment with Psychiatrist: 11:00am Therapist Name of Therapist: [facility] Therapist's Date of Therapist Appointment: 10/22/22 Time of Therapist Appointment: 11:30am Mining And Quarrying Machinery Repairer Name of Mining And Quarrying Machinery Repairer: None Post Discharge Appointments Primary Care Physician Name Of Family Doctor: Dr Flores/Dr Singh Primary Care Date of Appointment with PCP: 10/23/22 Time of Appointment with PCP: 12:45pm Contact Information Discharge Discharge Address: [address] [place] [address] Discharge Plan Discharge Items Patient Disposition: Home - Self-Care Reason For Visit: SI WITH A PLAN Discharge Diagnosis: Major Depressive Disorder Condition on Discharge: Good Activity: Resume your previous activity Non-emergency contact: Primary Care Provider, Psychiatrist and Therapist Call non-emergency contact if: you have any medication questions and your symptoms worsen Follow-up/Referrals: Neeta Flores, [Primary Care Provider] - Diet: Regular Addtl Attending Provider Instructions: Optional mobile apps: -Suicide safety plan -Virtual Hope Box -Panic Territory Sales Professional SPECIAL CARE INSTRUCTIONS: 1. Follow through with your scheduled aftercare appointments. If unable to keep an appointment, please call to reschedule. 2. Take your medication only as prescribed. Medication should not be changed or stopped without the approval of your doctor. In the event of worsening symptoms or concerns about side effects, contact your doctor immediately. 3. Utilize new healthy coping skills, anger management skills, and stress management skills learned during your hospitalization. Journal feelings and process them with a support person. Identify stressors or situations that may result in relapse, deterioration or inappropriate behaviors and develop a plan to deal with those issues. 4. If your coping skills are ineffective and you are in crisis, contact your outpatient providers for direction. If unable to reach your providers, please call the [facility] CRISIS LINE AT , go to the [facility] walk-in center at [address], [address], [place], or go to the closest Emergency Room. 5. Avoid alcohol and un-prescribed drugs. 6. You have been provided with the Mental Health Advance Directives Pamphlet for your review. 7. Your condition is stable for discharge to outpatient level of care, but recovery is an ongoing process. Ifthoughts to harm yourself or others return, follow the safety plan developed during your stay. Planning for a safe return home includes securing weapons. Our treatment team recommends weaponsbe removed from the home until your outpatient provider reassesses your progress. In rare cases where the items themselvescannot be removed, guns and ammunitionshould be secured separatelyand keys stored by a reliable personoutside of the home. If you were admitted on an involuntary commitment, the police or other legal authorities may be involved in this process. AFTERCARE APPOINTMENTS: * Please call your insurance company prior to your scheduled appointment to confirm your aftercare providers are covered. Take your insurance information to your appointments. WHO TO CALL AND WHEN: Medical Emergencies: For questions or emergencies related to your hospital stay, please contact the Inpatient Behavioral Health Unit at [phone]. A canal structure operator is on-call 17/06 for the Behavioral Health Unit for emergencies At any time you feel your situation is an emergency, you may also call 911 immediately. Pending Studies at Discharge: No Stand-Alone Forms: My [facility] Medications and DC Order Prescriptions: New clonazepam 0.5 mg Tablet 0.5 mg PO DAILY PRN (Reason: panic attacks) 30 Days Qty: 5 0RF duloxetine 40 mg capsule,delayed release(DR/EC) 40 mg PO DAILY 30 Days Qty: 30 0RF mirtazapine 30 mg tablet 30 mg PO HS 30 Days Qty: 30 0RF Continued rizatriptan [Maxalt-CONTAINER SHOP WELDER] 10 mg tablet,disintegrating 10 mg PO UD PRN (Reason: Migraine Headache) loratadine [Claritin] 10 mg Tablet 10 mg PO DAILY ondansetron 4 mg tablet,disintegrating 4 mg PO DIRECTED PRN (Reason: NAUSEA/VOMITING) Medical Marijuana 1 dose inhalation DIRECTED PRN (Reason: PAIN, ANXIETY) multivitamin Tablet 1 tab PO DAILY clonidine HCl 0.1 mg tablet 0.1 mg PO HS sulindac 200 mg tablet 200 mg PO BIDWMEAL Rx Instructions: take in morning and evening with meal rosuvastatin 40 mg tablet 40 mg PO QAM Discontinued clonazepam [Klonopin] 0.5 mg tablet 0.5 mg PO BID escitalopram oxalate 10 mg tablet 10 mg PO HS mirtazapine 15 mg tablet 15 mg PO HS duloxetine 20 mg capsule,delayed release(DR/EC) 20 mg PO QAM Discharge Orders: Discharge Order (Routine); Ordered 10/14/22 Ordered By: Juliet Felix Admission Data Admit Date/Time: 10/11/22 18:14 Attending Provider: Juliet Felix Admit Provider: Juliet Felix Primary Care Provider: Neeta Flores Other Interventions: SAURAVY Interdisciplinary Discharge Planning Last Done: 10/12/22 15:04 Coding Level of Care Code 28131 D/C day mgmt > 30 min Diagnoses Recurrent severe major depressive disorder with anxiety F33.2; F41.9 Post traumatic stress disorder (PTSD) F43.10 Complicated bereavement F43.21 Time Spent (min) 40
[2022-10-14] MEDS: MULTIVITAMIN TAB PO SCH (13:11)
== END 2022-10-14 15:20 | disposition home or self-care (01) | DRG 885 ==
LOC: ED 12:02 → 3S 18:14
DX: F43.10 Post-traumatic stress disorder, unspecified; F33.2 Major depressive disorder, recurrent severe without psychotic features; Z88.8 Allergy status to other drugs, medicaments and biological substances; F17.210 Nicotine dependence, cigarettes, uncomplicated; M35.00 Sjogren syndrome, unspecified; R45.851 Suicidal ideations